=== PATIENT | male | born 1995 | race Caucasian/White ===

== ENCOUNTER → 2020-03-29 14:52 | Outpatient (BNVA) | payer OTHER, SELFPAY | PROVIDERS: PCP Internal Medicine; Referring Provider Internal Medicine; Visit Provider Surgery | DX: L05.01 Pilonidal cyst with abscess (principal) | CPT/HCPCS: 10080; 99202 ==

== ENCOUNTER → 2020-04-12 10:38 | Outpatient (BNVA) | payer OTHER, SELFPAY | PROVIDERS: PCP Internal Medicine; Visit Provider Surgery | DX: L05.01 Pilonidal cyst with abscess (principal) | CPT/HCPCS: 99212 ==

== ENCOUNTER 2021-10-11 00:36 | Emergency (ER) | payer OTHER, SELFPAY ==
--- NOTE | ~2021-10-11 | XR_ITS ---
EXAMINATION: XR CHEST CLINICAL INFORMATION: Shortness of breath COMPARISON: 10/12/2012 TECHNIQUE: Frontal view of the chest was obtained. FINDINGS: The lungs are clear with no focal consolidation. No evidence of pneumothorax, pulmonary edema, or pleural effusions. The cardiomediastinal silhouette is unremarkable. No acute osseous findings. XR/XR chest 1V IMPRESSION: No acute cardiopulmonary findings.
[2021-10-11 00:48] VITALS: BP 150/105; PULSE 84; RESP 16; TEMP 36.4; O2SAT 95; BMI 24.4
[2021-10-11 01:15] LABS: COVID-19 Test Negative (Negative); IDNOW Serial# 16C4AD1C; Influenza A Negative (Negative); Influenza B2 Negative (Negative)
[2021-10-11 01:22] VITALS: PULSE 94; RESP 16; O2SAT 95
[2021-10-11 02:00] VITALS: BP 145/90; PULSE 82; RESP 16; TEMP 36.6; O2SAT 95
[2021-10-11] MEDS: predniSONE 20 MG TABLET 40 MG PO (02:10)
[2021-10-11] MEDS: Albuterol/Iprat 2.5/0.5MG 3 ML AMPUL.NEB INHALE (02:18)
[2021-10-11] MEDS: Albuterol Sulfate (0.083%) 2.5 MG/3 ML VIAL.NEB 5 MG INHALE (02:18)
[2021-10-11 02:19] VITALS: PULSE 79; RESP 16; O2SAT 98
--- NOTE | 2021-10-11 03:29 | ED.ASTHMA ---
HPI - Asthma General Chief Complaint: Asthma Stated Complaint: asthma attack Time Seen by Provider: 10/11/21 01:56 Source: patient Mode of arrival: ambulatory Limitations: no limitations History of Present Illness HPI Narrative: 26-year-old male came in for evaluation of coughing and wheezing. Patient with known history of asthma, for the past 2 days been feeling wheezing and tightness in his chest with productive coughing, this morning patient notice 1 time streaks of blood in the mucus. Patient feels wheezing and tightness in the chest but no chest pain, no fever, no chills, no sick contact, no recent travel, no lower extremity swelling or tenderness. Patient was using his inhaler with no relief of his symptoms. Related Data Home Medications Medication Instructions Recorded Confirmed albuterol sulfate 90 mcg/actuation INHALATION 03/28/20 02/15/21 aerosol inhaler fluticasone 250 mcg-salmeterol 50 1 ea PO BID 11/08/20 02/15/21 mcg/dose blistr powdr for inhalation Previous Rx's Medication Instructions Recorded albuterol sulfate 90 mcg/actuation 1 inh INHALATION QID PRN #8.5 g 10/11/21 aerosol inhaler (ProAir HFA) prednisone 20 mg tablet 20 mg PO BID #10 tab 10/11/21 Allergies Allergy/AdvReac Type Severity Reaction Status Date / Time peanut [PEANUT] Allergy Severe ANAPHYLAXIS Verified 02/15/21 14:20 dog dander [DOGS] Allergy Unknown SNEEZING Verified 02/15/21 14:20 egg [EGG] Allergy Unknown UNSURE Verified 02/15/21 14:20 feathers Allergy Unknown SNEEZING Verified 02/15/21 14:20 Review of Systems Review of Systems: All other systems are reviewed and are negative Constitutional: Reports as per HPI and Reports no additional constitutional complaints Eyes: Reports as per HPI and Reports no additional eye complaints Reports system reviewed and no additional complaints, except as documented Cardiovascular: Reports as per HPI and Reports no additional cardiovascular complaints Respiratory: Reports as per HPI and Reports no additional respiratory complaints Gastrointestinal: Reports as per HPI and Reports no additional gastrointestinal complaints Genitourinary: Reports no additional female genitourinary complaints Musculoskeletal: Reports no additional musculoskeletal complaints Skin/Breast: Reports system reviewed and no additional complaints, except as docu Psychiatric: Reports no additional psychiatric complaints Endocrine: Reports no additional endocrine complaints Hematologic/Lymphatic: Reports no additional hematologic/lymphatic complaints Allergic/Immunologic: Reports no additional allergic/immunologic complaints Reports system reviewed and no additional complaints, except as documented and Reports Abnormal speech present [facility] Past Medical History Medical History (Updated 10/11/21 @ 03:33 by Pipo Davison MD) Asthma Pilonidal abscess Surgical History History of tonsillectomy History of wisdom tooth extraction Family History Family History Father No problems noted. Mother No problems noted. Social History Social History Housing: House Alcohol intake: never Patient Tobacco Use Status: Never used Tobacco e-Cigarette/Vaping Use: Never Used Second Hand Smoke Exposure: No Advance Directives: No service: No Current occupational status: unemployed Physical Exam Vital Signs: Vital Signs: Last Vital Signs Temp 97.9 F 10/11/21 02:00 Pulse 79 10/11/21 02:19 Resp 16 10/11/21 02:19 BP 145/90 H 10/11/21 02:00 Pulse Ox 95 10/11/21 02:00 BMI result Body Mass Index 24.4 Vital signs have been reviewed as appeared to be correct. Blood pressure normal. Heart rate normal. Respiration rate normal. Temperature normal. Oxygen saturation normal. Appearance: Alert. Oriented X3. No acute distress. Head: Normal external exam. Normocephalic. Atraumatic. No Pompa signs noted. No raccoon eyes noted Eyes: PERRLA. EOMI. Conjunctiva and sclera normal. Eyelids normal. ENT: TM's Normal. Pharynx normal. Uvula midline. Moist mucous membranes. No trismus noted. No drooling noted. No muffled voice noted. Neck: Normal inspection. Neck supple. FROM. No adenopathy. Thyroid Normal. No meningeal signs. No neck mass noted. CVS: Normal heart rate and rhythm. Heart sound normal. No murmurs noted. Pulses normal throughout. Respiratory: No respiratory distress. Painless inspiration. Breath sounds normal. Bilateral diffuse mild expiratory wheezing with prolonged expiration. No accessory muscle usage noted or decreased air movement noted. Abdomen: Soft and nontender. Bowel sounds normal in all 4 quadrants. No distention noted. No organomegaly noted. No visible injury noted. Back: No CVA tenderness. Full range of motion noted. Skin: Skin warm and dry. Normal skin color. Normal skin turgor. No rashes/lesions/lacerations noted. Extremities: No lower extremity edema. Extremities exhibit normal range of motion. Extremities nontender. Neuro: Oriented X 3. Cranial nerve exam: II-XII are grossly intact No motor deficit. No sensory deficit. Reflexes normal. Course Course Course Narrative: Assessment and plan. 26-year-old male history of asthma came in with asthma exacerbation, patient is negative for respiratory panel infection, chest x-ray is unremarkable. Patient was given bronchodilator and will start the patient on Z-Saman and prednisone. MDM - Asthma Lab Data Attestation: I reviewed the patient's lab results. Labs: Lab Results 10/11/21 10/11/21 Range/Units 00:52 00:52 COVID-19 ([facility]) Negative (Negative) COVID-19 Clin Com See Note Influenza Type A (TRA) Negative (Negative) Influenza Type B (TRA) Negative (Negative) Influenza A & B Note See Note Imaging Data Chest x-ray: Attestation: I personally reviewed and interpreted this imaging study as follows: Radiologist's impression: No acute cardiopulmonary findings. Discharge Plan Discharge Clinical Impression: Acute asthmatic bronchitis Patient Disposition: Home, Self-Care Instructions: Asthma (ED) Prescriptions: New prednisone 20 mg tablet 20 mg PO BID Qty: 10 0RF albuterol sulfate [ProAir HFA] 90 mcg/actuation HFA aerosol inhaler 1 inh inhalation QID PRN (Reason: shortness of breath or wheezing) Qty: 8.5 0RF No Action albuterol sulfate 90 mcg/actuation HFA aerosol inhaler inhalation 0RF fluticasone propion-salmeterol 250-50 mcg/dose blister with device 1 ea PO BID 0RF Referrals: Physician,Unknown J [Primary Care Provider] - Stand Alone Forms: Work/School Release
== END 2021-10-11 04:39 | disposition home or self-care (01) ==
PROVIDERS: Emergency Provider Emergency Medicine
DX: J20.9 Acute bronchitis, unspecified (principal); J45.909 Unspecified asthma, uncomplicated; Z20.822 Contact with and (suspected) exposure to COVID-19
CPT/HCPCS: 71045; 87502; 87635; 94640; 94644; 99284

== ENCOUNTER 2021-11-24 14:43 | Outpatient (REF) | payer OTHER, SELFPAY ==
[2021-11-24 15:21] LABS: MANUAL DIFF FLAG NO
[2021-11-24 15:22] LABS: Basophils Percent Auto 0.3 % (0-2); Eosinophils Absolute Auto 0.1 X10*3/uL (0.0-0.4); Eosinophils Percent Auto 1.5 % (0-4); Hematocrit 46.6 % (42.0-52.0); Hemoglobin 16.4 g/dl (14.0-18.0); Imm Gran Abs Auto 0.02 X10*3/uL (0.00-0.03); Imm Gran Pct Auto 0.3 % (0.0-0.4); Lymphocytes Absolute Auto 2.5 X10*3/uL (1.2-4.9); Lymphocytes Percent Auto 41.7 % (20-40); Mean Corpuscular HGB Conc 35.2 g/dl (31.0-36.0); Mean Corpuscular Hemoglobin 30.3 pg (27.0-33.0); Mean Platelet Volume 10.7 fL (9.4-12.4); Monocytes Absolute Auto 0.6 X10*3/uL (0.1-1.2); Neutrophils Absolute Auto 2.7 x10*3/uL (2.0-8.3); Neutrophils Percent Auto 46.2 % (45-73); Platelet Count 152 X10*3/uL (160-400); Red Blood Count 5.42 X10*6/uL (4.60-5.80); Red Cell Distribution Width 11.4 % (11.0-16.0); White Blood Count 5.9 X10*3/uL (4.8-10.8)
[2021-11-24 15:48] LABS: Appearance Urine CLEAR; Color Urine YELLOW; Glucose Urine UA NEG (NEG); Leukocyte Esterase Urine NEG (NEG); Nitrite Urine NEG (NEG); UACC Culture Trigger NO; Urine Blood NEG (NEG); Urine Ketones NEG (NEG); Urine Protein 1+ MG/DL (NEG-TRACE)
[2021-11-24 16:01] LABS: RBC Urine 0 /HPF (0); Squamous Epithelial Cell Urine TRACE /LPF; WBC Urine 0 /HPF (0-4)
[2021-11-26 07:01] LABS: HIV AB/AG Nonreactive (Nonreactive); HIV Num 1 0.17 S/CO (0.00-0.99)
== END 2021-11-24 14:44 | disposition home or self-care (01) ==
LOC: HO.HMGCLDS 14:43
PROVIDERS: Visit Provider Physician Assistant Medical
DX: Z11.4 Encounter for screening for human immunodeficiency virus [HIV] (principal); R11.10 Vomiting, unspecified; N39.0 Urinary tract infection, site not specified
CPT/HCPCS: 36415; 81001; 85025; 87389

== ENCOUNTER 2022-05-03 08:00 | Outpatient (RCR) | payer OTHER, SELFPAY | END 2022-06-03 10:45 | disposition home or self-care (01) | LOC: HO.PT 08:00 | PROVIDERS: Visit Provider Nurse Practitioner Family | DX: R42 Dizziness and giddiness (principal) | CPT/HCPCS: 97161 ==

== ENCOUNTER 2022-10-23 19:31 | Emergency (ER) | payer OTHER, SELFPAY ==
--- NOTE | ~2022-10-23 | XR_ITS ---
EXAMINATION: XR CHEST CLINICAL INFORMATION: Cough, wheezing COMPARISON: 10/11/2021 TECHNIQUE: 2 views of the chest were obtained. FINDINGS: The lungs are clear with no focal consolidation. No evidence of pneumothorax, pulmonary edema, or pleural effusions. The cardiomediastinal silhouette is unremarkable. No acute osseous findings. XR/XR chest 2V IMPRESSION: No acute cardiopulmonary findings.
--- NOTE | 2022-10-23 19:45 | ED_ITS ---
HPI - Asthma General Chief Complaint: Asthma Stated Complaint: asthma attack symptoms Time Seen by Provider: 10/23/22 21:42 Source: patient, RN notes reviewed and old records reviewed Mode of arrival: ambulatory Limitations: no limitations History of Present Illness HPI Narrative: 27-year-old male past medical history significant for asthma presents for evaluation of shortness of breath. Patient reports worsening wheezing/shortness of breath for the last 3 days Reports he has been using his inhalers and nebulizer with minimal improvement. Denies any fevers, cough. A he wonders if his symptoms may be related to the air quality due to the [place] complaint: asthma attack Related Data Home Medications Medication Instructions Recorded Confirmed albuterol sulfate 90 mcg/actuation inhalation 03/28/20 09/03/22 aerosol inhaler fluticasone 250 mcg-salmeterol 50 1 ea PO BID 11/08/20 09/03/22 mcg/dose blistr powdr for inhalation Previous Rx's Medication Instructions Recorded albuterol sulfate 90 mcg/actuation 1 inh inhalation QID PRN shortness 10/11/21 aerosol inhaler (ProAir HFA) of breath or wheezing #8.5 grams albuterol sulfate 2.5 mg/0.5 mL 5 mg inhalation Q6H PRN shortness 10/23/22 solution for nebulization of breath or wheezing #30 ea prednisone 20 mg tablet 40 mg PO DAILY #10 tabs 10/23/22 Allergies Allergy/AdvReac Type Severity Reaction Status Date / Time peanut [PEANUT] Allergy Severe ANAPHYLAXIS Verified 09/03/22 10:02 dog dander [DOGS] Allergy Unknown SNEEZING Verified 09/03/22 10:02 egg [EGG] Allergy Unknown UNSURE Verified 09/03/22 10:02 feathers Allergy Unknown SNEEZING Verified 09/03/22 10:02 Review of Systems Constitutional: Constitutional: Reports as per HPI, Denies chills, Denies fatigue, Denies fever(s) and Denies headache(s) ENT: Denies headache(s) Cardiovascular: Cardiovascular: Denies chest pain and Reports dyspnea Respiratory: Respiratory: Denies cough, Reports dyspnea and Reports wheezing Neurologic: Denies headache(s) and Denies focal weakness Endocrine: Endocrine: Denies fatigue Allergic/Immunologic: Allergic/Immunologic: Reports wheezing PMFSH Past Medical History Medical History (Updated 10/23/22 @ 22:49 by Rashid Foster) Acute otitis media Asthma Pilonidal abscess Vertigo Surgical History History of tonsillectomy History of wisdom tooth extraction Family History Family History Father No problems noted. Mother No problems noted. Social History Social History Housing: House Alcohol intake: never Patient Tobacco Use Status: Never used Tobacco e-Cigarette/Vaping Use: Never Used Second Hand Smoke Exposure: No Advance Directives: No Advance Directives Information Provided: Yes service: No Current occupational status: unemployed Cognitive needs: No Hearing needs: No Vision needs: No Physical Exam Vital Signs: Vital Signs: Last Vital Signs Temp 97.8 F 10/23/22 21:45 Pulse 88 10/23/22 22:30 Resp 18 10/23/22 22:30 BP 135/85 10/23/22 21:45 Pulse Ox 98 10/23/22 21:45 O2 Del Method Room Air 10/23/22 21:45 BMI result Body Mass Index 25.1 Const: General: healthy appearing, comfortable, no acute distress, alert and awake Nutritional Appearance: well nourished Orientation/consciousness: patient oriented x3 HEENT: Head: Yes normocephalic and Yes atraumatic Eyes: Eyelids: Yes eyelids normal Conjunctivae: conjunctivae normal Sclerae: sclerae normal Corneas: corneas normal Pupils: Equal, round and reactive pupils present EOM: EOMs intact bilaterally Neck: Neck: Yes full ROM Resp: Effort & Inspection: normal respiratory effort, able to speak in complete sentences and not labored Auscultation: wheezes Skin: General skin exam: no rashes or lesions noted and elasticity normal Neuro: General: patient oriented x3 Cranial nerves: Yes Equal, round and reactive pupils present and Yes Bilaterally intact EOM present Cognition (Neuro): normal cognition Course Course Course Narrative: RME - 27 yo male with history of asthma presents to the ER for evaluation of asthma symptoms for the last 2-3 days. Has been using the neb machine without improvement. +coughing +wheezing. no fever. symptoms worse since being outside a lot lately. SpO2 93-95% in triage, speaking in complete sentences but diffusely wheezy. Plan: CXR, neb, steroids Medications Administered Discontinued Medications Generic Name Dose Route Start Last Admin Trade Name Sebastienq PRN Reason Stop Dose Admin Albuterol Sulfate 2.5 mg/ 0 mg 10/23/22 22:18 10/23/22 22:27 Albuterol/Ipratropium 3 ml INHALE 10/23/22 22:19 1 each ONCE ONE Administration Prednisone 40 mg 10/23/22 22:11 10/23/22 22:15 Prednisone 20 Mg Tablet PO 10/23/22 22:12 40 mg ONCE ONE Administration Medical Decision Making Medical Decision Making [facility] Narrative: Patient appears to have symptoms consistent with a mild asthma exacerbation. Vital signs are stable. Symptoms possibly related to allergic triggers. Will discharge patient on prednisone, refill his albuterol for his nebulizer and he will follow-up with his PCP. Chest x-ray is clear Differential Diagnosis Asthma Bronchitis Allergies Upper respiratory infection Independent Interpretation I performed an independent interpretation of an: Plain X-Ray (No acute infiltrates) Discharge Plan Discharge Clinical Impression: Asthma with acute exacerbation Patient Disposition: Home, Self-Care Instructions: Asthma (ED) Additional Instructions: Your symptoms are consistent with an asthma exacerbation. Your chest x-ray is clear Take prednisone 40 mg daily for the next 5 days Use a rescue inhaler and nebulizers as prescribed You may benefit from an [id number]-kgxayiy allergy medication daily during the summer months, as it is likely your symptoms are attributed to allergic triggers Prescriptions: New prednisone 20 mg tablet 40 mg PO DAILY Qty: 10 0RF albuterol sulfate 2.5 mg/0.5 mL solution for nebulization 5 mg inhalation Q6H PRN (Reason: shortness of breath or wheezing) Qty: 30 0RF No Action albuterol sulfate [ProAir HFA] 90 mcg/actuation HFA aerosol inhaler 1 inh inhalation QID PRN (Reason: shortness of breath or wheezing) Qty: 8.5 0RF albuterol sulfate 90 mcg/actuation HFA aerosol inhaler inhalation fluticasone propion-salmeterol 250-50 mcg/dose blister with device 1 ea PO BID
[2022-10-23 19:46] VITALS: BP 146/68; PULSE 85; RESP 20; TEMP 37.1; O2SAT 94; BMI 25.1
[2022-10-23 21:45] VITALS: BP 135/85; PULSE 73; RESP 16; TEMP 36.6; O2SAT 98
[2022-10-23] MEDS: predniSONE 20 MG TABLET 40 MG PO (22:15)
[2022-10-23 22:30] VITALS: PULSE 88; RESP 18; O2SAT 96
[2022-10-23 23:01] VITALS: BP 147/86; PULSE 84; RESP 20; O2SAT 95
== END 2022-10-23 23:02 | disposition home or self-care (01) ==
PROVIDERS: Emergency Provider Emergency Medicine
DX: J45.901 Unspecified asthma with (acute) exacerbation (principal)
CPT/HCPCS: 71046; 94640; 99284

== ENCOUNTER 2022-11-21 11:00 | Outpatient (RCR) | payer OTHER, SELFPAY ==
--- NOTE | 2022-12-16 09:36 | MHC.PT.DC ---
[facility] [place] [facility] [place] [facility] [place] Office [address] Nellie Zamora [address] [phone] F: [phone] F: [phone] F: [phone] F: [phone] Physical Therapy Discharge Report Diagnosis: VERTIGO (KP) Date of Surgery: Date of Evaluation: 11/11/22 Date of Discharge: Treatments to Date: 3 Cancellations to Date: 0 No Shows to Date: 0 Discharge Status: Achieved Goals Improved Function Independent with HEP Discharge Summary: [place] arrived stating he is feeling better. He has noticed improvements in dizziness when he is hiking. He has noticed improvements with with VOR activities. He however continues to report of having dizziness with rolling in the bed and walking with horizontal head turns. I started the session with VOR exercises. Balance challenged with walking head turns and ball passes. Dizziness and nausea reported with both but no LOB seen. [place] has made significant improvements and is independent with HEP. He will be practicing HEP until complete resolution of symptoms. He was advised to return to PT incase of lack of improvement or worsening of symptoms. No adverse response noted to any exercise. Electronically signed by: OMER RAMON PT DPT Please sign and return to therapist. Thank you for your referral.
== END 2022-12-16 09:36 | disposition home or self-care (01) ==
LOC: HO.PT 11:00
PROVIDERS: PCP Internal Medicine; Visit Provider Internal Medicine
DX: R42 Dizziness and giddiness (principal)
CPT/HCPCS: 95992; 97112; 97161

== ENCOUNTER 2022-12-03 15:55 | Outpatient (AMB) | payer OTHER, SELFPAY ==
[2022-12-03 16:00] VITALS: BP 127/67; PULSE 67; BMI 25.6
--- NOTE | 2022-12-03 16:00 | MHC.OFFVIS ---
Intake Vital Signs 12/03/22 16:00 Height 6 ft Weight 189 lb BMI 25.6 BP 127/67 Blood Pressure Location Rt brachial Position Sitting Pulse 67 Intake Visit Reasons: Cyst/ Lt nipple Intake Note: Patient referred for cyst on Lt nipple. Has been present for 13 yrs. Patient reports oozing when pressed. 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 Each of increasing size, become more symptomatic. He would like to have them excised. He has no other issues or complaints. Chart was reviewed and patient evaluated [facility] Medical History Acute otitis media Asthma Pilonidal abscess Vertigo Surgical History History of tonsillectomy History of wisdom tooth extraction Family History Father No problems noted. Mother No problems noted. Social History (Updated 12/03/22 @ 16:02 by MINA Domingo) Housing: House Alcohol intake: current Alcohol intake frequency: holidays/special occasions only Patient Tobacco Use Status: Never used Tobacco e-Cigarette/Vaping Use: Never Used Second Hand Smoke Exposure: No service: No Current occupational status: unemployed Cognitive needs: No Hearing needs: No Vision needs: No Physical Exam Vital Signs: Last Vital Signs Pulse 67 12/03/22 16:00 BP 127/67 12/03/22 16:00 BMI result Body Mass Index 25.6 Chest Other: Small sebaceous cyst with punctum along the areola at the 2 o'clock position of left chest. This measures approximately 2 x 1 cm. GI Other: Small sebaceous cyst in left lower quadrant anterior abdominal wall measuring approximately 2 x 1 cm. Assessment & Plan Assessment & Plan (1) Sebaceous cyst: Code(s): L72.3 - Sebaceous cyst Plan Current plan is to arrange for excision of these on a day which is convenient for the patient. Arrangements will be made for this in the office procedure room.. Coding Level of Care Code New Pt Level 3 (26742) Diagnoses Sebaceous cyst L72.3
== END 2022-12-03 16:21 | disposition home or self-care (01) ==
PROVIDERS: Referring Provider Internal Medicine; Visit Provider Surgery
DX: L72.3 Sebaceous cyst (principal)
CPT/HCPCS: 99203

== ENCOUNTER → 2022-12-03 15:55 | Outpatient (BNVA) | payer OTHER, SELFPAY | PROVIDERS: Referring Provider Internal Medicine; Visit Provider Surgery | DX: N60.82 Other benign mammary dysplasias of left breast (principal) | CPT/HCPCS: 99202 ==

== ENCOUNTER 2023-02-25 08:41 | Outpatient (REF) | payer OTHER, SELFPAY | END 2023-02-25 08:42 | disposition home or self-care (01) | LOC: HO.LNP 08:41 | PROVIDERS: Visit Provider Surgery | DX: L72.3 Sebaceous cyst (principal) | CPT/HCPCS: 11401; 88304 ==

== ENCOUNTER 2023-02-25 08:41 | Outpatient (AMB) | payer OTHER, SELFPAY ==
--- NOTE | 2023-02-25 08:49 | A.OFFVIS_ITS ---
Intake Vital Signs 02/25/23 08:50 Height 6 ft Weight 194 lb BMI 26.3 BP 111/56 L Blood Pressure Location Rt brachial Position Sitting Pulse 76 Intake Visit Reasons: Exc 2 cysts chest wall and abdominal wall Intake Note: Patient here for excision on Lt chest near areola and LLQ for cysts. 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 Accompanied by: Self / Same As Patient Allergies peanut [PEANUT] Allergy (Severe, Verified 02/25/23 08:51) ANAPHYLAXIS dog dander [DOGS] Allergy (Unknown, Verified 02/25/23 08:51) SNEEZING egg [EGG] Allergy (Unknown, Verified 02/25/23 08:51) UNSURE feathers Allergy (Unknown, Verified 02/25/23 08:51) SNEEZING Medication List - Last Reconciled 02/25/23 by Kevin Bruner MD albuterol sulfate 90 mcg/actuation (ProAir HFA) 1 inh inhalation QID PRN albuterol sulfate 5 mg inhalation Q6H PRN fluticasone propion-salmeterol 250-50 mcg/dose 1 ea PO BID HPI HPI Comments History of Present Illness Details Patient presents for excision of 2 sebaceous cysts involving his left periareolar area and left lower abdominal wall. Patient was seen by me several months ago for these. Risks, benefits, alternatives of excision of these 2 cysts were reviewed with the patient and included but not limited to bleeding, infection, recurrence, numbness, pain, scarring the patient wishes to proceed. All questions were answered. [facility] Medical History Acute otitis media Vertigo Pilonidal abscess Asthma Surgical History History of wisdom tooth extraction History of tonsillectomy Family History Father No problems noted. Mother No problems noted. Social History Housing: House Alcohol intake: current Alcohol intake frequency: holidays/special occasions only Patient Tobacco Use Status: Never used Tobacco e-Cigarette/Vaping Use: Never Used Second Hand Smoke Exposure: No service: No Current occupational status: unemployed Cognitive needs: No Hearing needs: No Vision needs: No Physical Exam Vital Signs: Last Vital Signs Pulse 76 02/25/23 08:50 BP 111/56 L 02/25/23 08:50 BMI result Body Mass Index 26.3 Office Procedures Excision Details: After appropriate positioning, patient underwent 1% lidocaine and Betadine prep of the left periareolar cyst at the 2 o'clock position and of the left lower abdominal wall. Each cyst measured approximately 1 x 1 cm. Each area was approach with a bi- elliptical incision with uneventful excision. Each specimen was separately sent to pathology. Each wound was irrigated, secured hemostasis, and closed using running subcuticular 3-0 Vicryl sutures followed by Steri-Strips and sterile dressing. Patient tolerated procedure well. 55745-cvveb/arms/legs 0.6-1cm Procedure code (CPT) selection complete Office Meds lidocaine 1 %-epinephrine 1:100,000 injection solution Performing Provider: Kevin Bruner MD Performing Location: [facility] Surgeons Administered by: Kevin Bruner MD on 02/25/23 09:19 Dose Route Admin Location Dispensed Lot Number Expiration Date [facility] Food Mixer Assembler 10 mL Infiltration 10 mL Assessment & Plan Assessment & Plan (1) Sebaceous cyst: Code(s): L72.3 - Sebaceous cyst Plan: Patient has been given local instructions, and will follow-up as directed or p.r.n.. This include avoiding strenuous activities for next week, may shower in 2 days, ice pack intermittently today and tomorrow, and Advil or Tylenol p.r.n. pain. Patient will be given a note for light duty at work for the next week. Orders: Orders AMB Excision Today L72.3 - Sebaceous cyst Coding Level of Care Code Est Pt Level 4 (09694) Diagnoses Sebaceous cyst L72.3 CPT Codes Trunk/Arms/Legs - CPT: 03443-falir/arms/legs 0.6-1cm ([id number])
[2023-02-25 08:50] VITALS: BP 111/56; PULSE 76; BMI 26.3
== END 2023-02-25 09:23 | disposition home or self-care (01) ==
PROVIDERS: Visit Provider Surgery
DX: L72.3 Sebaceous cyst (principal)
CPT/HCPCS: 11401

== ENCOUNTER 2023-03-04 10:29 | Outpatient (AMB) | payer OTHER, SELFPAY ==
[2023-03-04 10:41] VITALS: BP 130/66; PULSE 69; BMI 26.0
--- NOTE | 2023-03-04 10:41 | MHC.OFFVIS ---
Intake Vital Signs 03/04/23 10:41 Height 6 ft Weight 192 lb BMI 26.0 BP 130/66 Blood Pressure Location Rt brachial Position Sitting Pulse 69 Intake Visit Reasons: S/p Exc 2 cysts chest wall and abdominal wall Intake Note: Patient here s/p exc on chest and abd wall. Patient reports incisions healing well. C/o mild itch. 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 He has no wound issues or complaints. Pathology is still pending. If there is an issue with the pathology, we will contact him. [facility] Medical History Acute otitis media Vertigo Pilonidal abscess Asthma Surgical History History of wisdom tooth extraction History of tonsillectomy Family History Father No problems noted. Mother No problems noted. Social History Housing: House Alcohol intake: current Alcohol intake frequency: holidays/special occasions only Patient Tobacco Use Status: Never used Tobacco e-Cigarette/Vaping Use: Never Used Second Hand Smoke Exposure: No service: No Current occupational status: unemployed Cognitive needs: No Hearing needs: No Vision needs: No Physical Exam Vital Signs: Last Vital Signs Pulse 69 03/04/23 10:41 BP 130/66 03/04/23 10:41 BMI result Body Mass Index 26.0 Chest Other: Chest and abdominal wound incisions are well healed. Assessment & Plan Assessment & Plan (1) Sebaceous cyst: Code(s): L72.3 - Sebaceous cyst Plan Patient has been given local wound instructions, and will follow-up p.r.n. Coding Level of Care Code Global (08262) Diagnoses Sebaceous cyst L72.3
== END 2023-03-04 10:47 | disposition home or self-care (01) ==
PROVIDERS: Visit Provider Surgery
DX: L72.3 Sebaceous cyst (principal)
CPT/HCPCS: 99024

== ENCOUNTER → 2023-03-04 10:29 | Outpatient (BNVA) | payer OTHER, SELFPAY | PROVIDERS: Visit Provider Surgery | DX: L72.3 Sebaceous cyst (principal) ==

== ENCOUNTER 2023-10-03 10:24 | Emergency (ER) | payer OTHER, SELFPAY ==
--- NOTE | ~2023-10-03 | XR_ITS ---
EXAMINATION: XR CHEST CLINICAL INFORMATION: Shortness of breath. COMPARISON: 10/23/2022 TECHNIQUE: 2 views of the chest were obtained. FINDINGS: The lungs are well expanded. No focal consolidation. No pleural effusion. Cardiac silhouette is unchanged. XR/XR chest 2V IMPRESSION: No acute abnormality.
[2023-10-03 10:33] VITALS: BP 118/79; PULSE 109; RESP 24; TEMP 36.4; O2SAT 95; BMI 22.0
[2023-10-03 13:21] LABS: Influenza A PCR NEGATIVE (Negative); Influenza B PCR NEGATIVE (Negative); Resp Syncy Virus RNA Qual PCR NEGATIVE (Negative); SARS COV2 PCR INHOUSE NEGATIVE (Negative)
[2023-10-03] MEDS: predniSONE 20 MG TABLET 60 MG PO (13:38)
[2023-10-03] MEDS: Albuterol Sulfate 2.5 MG, Albuterol/Iprat 2.5/0.5MG 3 ML 3 ML INHALE (13:45)
[2023-10-03 13:46] VITALS: PULSE 94; RESP 16; O2SAT 97
--- NOTE | 2023-10-03 14:07 | ED.ASTHMA ---
HPI - Asthma General Chief Complaint: Asthma Stated Complaint: asthma attack Time Seen by Provider: 10/03/23 13:23 Source: patient Mode of arrival: ambulatory Limitations: no limitations History of Present Illness HPI Narrative: Patient is a 28-year-old male with past medical history of asthma who presents emergency department expressing concern for asthma exacerbation. Symptom onset was today while at work. 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 He attempted for nebulizer treatments prior to his arrival with only minimal relief. He denies any recent URI symptoms or known sick contacts. Denies fevers, chills, chest pain. Of note, he does admit that he has not been taking his Flovent inhaler for the past few months due to insurance coverage. Related Data Home Medications ?Medication ?Instructions ?Recorded ?Confirmed fluticasone 250 mcg-salmeterol 50 1 ea PO BID 11/08/20 09/03/22 mcg/dose blistr powdr for inhalation Previous Rx's ?Medication ?Instructions ?Recorded albuterol sulfate 90 mcg/actuation 1 inh inhalation QID PRN shortness 10/11/21 aerosol inhaler (ProAir HFA) of breath or wheezing #8.5 grams albuterol sulfate 2.5 mg/0.5 mL 5 mg inhalation Q6H PRN shortness 10/23/22 solution for nebulization of breath or wheezing #30 ea albuterol sulfate 2.5 mg/3 mL 2.5 mg (3 mL) inhalation QID PRN 10/03/23 (0.083 %) solution for nebulization shortness of breath or wheezing #90 mL albuterol sulfate 90 mcg/actuation 2 puff inhalation Q4-6H PRN 10/03/23 aerosol inhaler (Ventolin HFA) shortness of breath or wheezing #8.5 grams fluticasone 250 mcg-salmeterol 50 1 inh inhalation BID #60 ea 10/03/23 mcg/dose blistr powdr for inhalation prednisone 20 mg tablet 40 mg (2 x 20 mg) PO DAILY 4 days 10/03/23 #8 tabs Allergies Allergy/AdvReac Type Severity Reaction Status Date / Time peanut [PEANUT] Allergy Severe ANAPHYLAXIS Verified 10/03/23 10:35 dog dander [DOGS] Allergy Unknown SNEEZING Verified 10/03/23 10:35 egg [EGG] Allergy Unknown UNSURE Verified 10/03/23 10:35 feathers Allergy Unknown SNEEZING Verified 10/03/23 10:35 Review of Systems Review of Systems: Yes all other systems are reviewed and are negative [facility] Past Medical History Attestation statement: The following information was validated with the patient. Source: old records reviewed Medical History Acute otitis media Vertigo Pilonidal abscess Asthma Surgical History History of wisdom tooth extraction History of tonsillectomy Family History Family History Father No problems noted. Mother No problems noted. Social History Social History Housing: House Alcohol intake: current Alcohol intake frequency: holidays/special occasions only Patient Tobacco Use Status: Never used Tobacco e-Cigarette/Vaping Use: Never Used Second Hand Smoke Exposure: No Advance Directives: No Advance Directives Information Provided: Yes service: No Current occupational status: unemployed Cognitive needs: No Hearing needs: No Vision needs: No Physical Exam Vital Signs: Vital Signs: Last Vital Signs Temp 97.6 F 10/03/23 10:33 Pulse 100 10/03/23 14:19 Resp 20 10/03/23 14:19 BP 118/79 10/03/23 10:33 Pulse Ox 96 10/03/23 14:19 O2 Del Method Room Air 10/03/23 10:33 BMI result Body Mass Index 22.0 Appearance: Alert.?Oriented to person, place and time. No acute distress.?Normal affect. Eyes: Pupils equal, round and reactive to light.? ENT: Pharynx normal.?? Neck: Normal inspection.? Neck supple.?? CVS: Heart sounds normal. Normal heart rate and rhythm.? Pulses normal.?? Respiratory: No respiratory distress.? Lung sounds With inspiratory and expiratory wheezing bilaterally. No stridor. No tripoding. No retractions. Abdomen: Soft and non-tender. Normoactive bowel sounds. ? Skin: Skin warm and dry.? Normal skin color.? Normal skin turgor.?? Extremities: No lower extremity edema.? No calf ttp? Neuro: Moves all extremities spontaneously. Sensation intact bilaterally. Ambulates with normal steady gait. Medications Administered Discontinued Medications Generic Name Dose Route Start Last Admin Trade Name Rebecca PRN Reason Stop Dose Admin Albuterol Sulfate 2.5 mg/ 0 mg 10/03/23 13:42 10/03/23 13:45 Albuterol/Ipratropium 3 ml INHALE 10/03/23 13:43 1 dose ONCE ONE Administration Prednisone 60 mg 10/03/23 13:31 10/03/23 13:38 Prednisone 20 Mg Tablet PO 10/03/23 13:32 60 mg ONCE ONE Administration Medical Decision Making Medical Decision Making MDM Narrative: Patient is a 28-year-old male who presents emergency department for evaluation of shortness of breath and personal concern for asthma exacerbation. Of note he has not been taking his daily maintenance inhalers due to insurance coverage issues. He acknowledges provocative environmental triggers for his asthma at work. While in the emergency department he received a dose of oral prednisone, albuterol 2.5 mg nebulized solution with report of improvement in his breathing when compared to his arrival. On re-evaluation he does continue to have expiratory wheezing but he is moving air more freely. Ambulatory O2 trial without hypoxia or expressed dyspnea. He overall appears well. He is nontoxic, afebrile, without tachypnea or hypoxia. At this time feel he is stable for discharge home. He now has new insurance, I have sent a prescription for his Flovent inhaler to his pharmacy in addition to albuterol MDI, nebulizer solution, and a course of prednisone. We discussed strict return precautions. Worrisome signs and symptoms that would warrant re-evaluation in the emergency department. All questions were answered. Stable for discharge. Differential Diagnosis Differential Diagnoses: The differential diagnosis associated with the presentation includes ( Asthma exacerbation, viral syndrome, pneumonia) Lab Data MDM Lab Attestation statement: I reviewed the patient's lab results. viral panel negative Labs: Lab Results 10/03/23 Range/Units 12:38 Influenza Type A (PCR) NEGATIVE (Negative) Influenza Type B (PCR) NEGATIVE (Negative) RSV RNA Qual (PCR) NEGATIVE (Negative) SARS-CoV-2 RNA (RT-PCR) NEGATIVE (Negative) Independent Interpretation I performed an independent interpretation of an: Plain X-Ray ( no pneumonia or pneumothorax) Radiology Impression Discussion of test interpretation with radiology: I have reviewed the radiologist's reading. Radiologist Impression: XR/XR chest 2V IMPRESSION: No acute abnormality. External Record Review External record reviewed: Outpatient record Prescription Management I considered prescription management with: Other ( see narrative above) Discharge Plan Discharge Clinical Impression: Asthma with acute exacerbation Patient Disposition: Home, Self-Care Instructions: Asthma (ED) Additional Instructions: take medications as prescribed. Follow-up with PCP/industrial/organizational psychologist. Return back to emergency department any new or worsening symptoms or concerns. Prescriptions: New prednisone 20 mg tablet 40 mg PO DAILY 4 Days Qty: 8 0RF albuterol sulfate 2.5 mg /3 mL (0.083 %) solution for nebulization 2.5 mg inhalation QID PRN (Reason: shortness of breath or wheezing) Qty: 90 0RF albuterol sulfate [Ventolin HFA] 90 mcg/actuation HFA aerosol inhaler 2 puff inhalation Q4-6H PRN (Reason: shortness of breath or wheezing) Qty: 8.5 0RF fluticasone propion-salmeterol 250-50 mcg/dose blister with device 1 inh inhalation BID Qty: 60 0RF No Action albuterol sulfate [ProAir HFA] 90 mcg/actuation HFA aerosol inhaler 1 inh inhalation QID PRN (Reason: shortness of breath or wheezing) Qty: 8.5 0RF albuterol sulfate 2.5 mg/0.5 mL solution for nebulization 5 mg inhalation Q6H PRN (Reason: shortness of breath or wheezing) Qty: 30 0RF fluticasone propion-salmeterol 250-50 mcg/dose blister with device 1 ea PO BID Referrals: Physician,Unknown J [Primary Care Provider] - Print Language: Hebrew
[2023-10-03 14:19] VITALS: PULSE 100; RESP 20; O2SAT 96
[2023-10-03 14:25] VITALS: BP 118/79; PULSE 100; RESP 20; TEMP 36.4; O2SAT 96
== END 2023-10-03 14:28 | disposition home or self-care (01) ==
PROVIDERS: Physician Assistant Medical; Emergency Provider Emergency Medicine Emergency Medical Services
DX: J45.901 Unspecified asthma with (acute) exacerbation (principal); Z03.818 Encounter for observation for suspected exposure to other biological agents ruled out
CPT/HCPCS: 0241U; 71046; 94640; 99284

== ENCOUNTER 2024-11-09 11:30 | Outpatient (AMB) | payer BC, SELFPAY ==
[2024-11-09 11:32] VITALS: BP 110/70; PULSE 78; TEMP 36.3; O2SAT 95; BMI 23.5
--- NOTE | 2024-11-09 11:32 | MHC.PC.OV ---
Vital Signs 11/09/24 11:32 Height 6 ft Weight 173 lb 8 oz BMI 23.5 BP 110/70 Blood Pressure Location Lt brachial Position Sitting Pulse 78 Pulse Source Pulse Oximeter Temp 97.3 F Temp Source Temporal Artery Scan Pulse Oximetry (%) 95 Oxygen Delivery Method Room Air Intake Visit Reasons: DIMITRIS from [place]/[facility] Allergies peanut (PEANUT) Allergy (Severe, Verified 11/09/24 11:44) ANAPHYLAXIS dog dander (DOGS) Allergy (Unknown, Verified 11/09/24 11:44) SNEEZING egg (EGG) Allergy (Unknown, Verified 11/09/24 11:44) UNSURE feathers Allergy (Unknown, Verified 11/09/24 11:44) SNEEZING Medication List - Last Reconciled 11/09/24 by RAJWINDER Chambers albuterol sulfate 90 mcg/actuation (ProAir HFA) 1 inh inhalation QID PRN albuterol sulfate 2.5 mg (3 mL) inhalation QID PRN albuterol sulfate 5 mg inhalation Q6H PRN albuterol sulfate 90 mcg/actuation (Ventolin HFA) 2 puffs inhalation Q4-6H PRN fluticasone propion-salmeterol 250-50 mcg/dose 1 inh inhalation BID fluticasone propion-salmeterol 250-50 mcg/dose 1 ea PO BID Tobacco use date assessed: 11/09/24 Dental Screening Dental Screen Date: 11/09/24 Did you have a dental visit in the last 12 months?: Yes Did you have a dental problem in the last 6 months where you did not have access to dental care?: No Was dental information given to patient?: Patient has dentist HPI DIMITRIS from [place]/[facility] HPI Details The patient is a 29-year-old male presenting for transition of care from Dr. Leos and management of asthma and allergies. The patient has a significant history of asthma, which has been managed with inhalers such as ProAir and Ventolin. He reports experiencing shortness of breath intermittently, particularly in environments with poor air quality, and has had episodes requiring emergency room visits. The patient has used prednisone in the past for exacerbations, although he prefers to avoid it due to side effects. The patient also reports symptoms consistent with allergic rhinitis, including congestion and potential new allergies. He has not followed up with an door to door sales representative in recent years and is seeking a referral for further evaluation. Additionally, the patient experiences vertigo, which occurs when he changes positions, such as getting up from bed. These episodes last about 5-10 seconds and have been suggested to be related to fluid buildup due to allergies. He has been advised to increase vitamin D intake and engage in exercises to manage the vertigo. [facility] Medical History Acute otitis media Vertigo Pilonidal abscess Asthma Surgical History History of wisdom tooth extraction History of tonsillectomy Family History Father No problems noted. Mother No problems noted. Social History Household Members: None Housing: House Alcohol intake: current Alcohol intake frequency: holidays/special occasions only Patient Tobacco Use Status: Never used Tobacco e-Cigarette/Vaping Use: Never Used Second Hand Smoke Exposure: No Substance Use Type: Marijuana service: No Current occupational status: unemployed Cognitive needs: No Hearing needs: No Vision needs: No Questionnaire PHQ-9 Over the last 2 weeks, how often have you been bothered by any of the following problems? 1. Little interest or pleasure in doing things: not at all 2. Feeling down, depressed, or hopeless: not at all 3. Trouble falling or staying asleep, or sleeping too much: not at all 4. Feeling tired or having little energy: not at all 5. Poor appetite or overeating: not at all 6. Feeling bad about yourself - or that you are a failure or have let yourself or your family down: not at all 7. Trouble concentrating on things, such as reading the newspaper or watching television: not at all 8. Moving or speaking so slowly that other people could have noticed. Or the opposite - being so fidgety or restless that you have been moving around a lot more than usual: not at all 9. Thoughts that you would be better off or of hurting yourself in some way: not at all Total score: 0 Depression Screening Interpretation: Negative Depression Screening Done: Yes 71023 - PHQ-9 Billing: Yes Source: Developed by Drs. Gab Edmonds, Josias Edge and colleagues, with an educational james from [employer]. Thrive Questionnaire Date Thrive assessed: 11/09/24 I am a: Patient What is your living situation today?: I have a steady place to live Within the past 12 months, did the food you bought not last and you didn't have the money to get more?: Sometimes True Within the past 12 months, did you worry whether your food would run out before you got money to buy more?: Sometimes True Do you have trouble paying for medicines?: No Do you have trouble getting transportation to medical appointments?: No Do you have trouble paying your heating and electricity bill?: No Do you have trouble taking care of your child, family member or friend?: No Do you have trouble with day-to-day activities such as bathing, preparing meals, shopping, managing finances, etc.?: No Are you currently unemployed and looking for a job?: No Are you interested in more education?: No Please select the resources that you would like help with: Food Currently or been in a relationship where the following occur: No concerns reported THRIVE Score: 2 AUDIT C Alcohol Use Questionnaire (AUDIT-C) 1. How often do you have a drink containing alcohol?: Never 3. How often do you have six or more drinks on one occasion?: Never Total Score: 0 SHON-7 AMB Questionnaire SHON-7 Date SHON - 7 assessed: 11/09/24 Feeling nervous, anxious, or on edge: 0 = Not at all Not being able to stop or control worryin = Not at all Worrying too much about different things: 0 = Not at all Trouble relaxin = Not at all Being so restless that it is hard to sit still: 0 = Not at all Becoming easily annoyed or irritable: 0 = Not at all Feeling afraid as if something awful might happen: 0 = Not at all Total SHON-7 score (0-4 normal; 5-9 mild; 10-14 moderate; 15-21 severe): 0 Source: Developed by Karol Espinoza Kurt Kroenke and colleagues, with an educational james from [employer]. SHON-7 Assessment Billing SHON-7 Assessment Tool: SHON-7 Assessment 02783 Review of Systems Const Denies headache(s) Eyes Denies loss of vision ENT Reports vertigo (Intermittently last at like 10 seconds with head tilt), Denies dizziness, Denies headache(s), Reports nasal congestion (on and off ), Reports tinnitus (Intermittently) and Denies sore throat Card Denies chest pain, Denies leg edema, Denies lightheadedness and Reports dyspnea (On and off attributed to asthma symptoms) Resp Reports cough (on and off), Denies hemoptysis, Reports excessive phlegm production (yellowish phlegm for about a month), Reports dyspnea (On and off attributed to asthma symptoms) and Reports wheezing (on and off) GI Denies abdominal pain, Denies melena, Denies constipation, Denies diarrhea and Denies vomiting Denies dysuria, Denies urinary frequency and Denies urinary urgency Musc Denies arthralgias, Denies joint swelling, Denies numbness and Denies tingling Neuro Denies Abnormal speech present, Denies behavioral changes, Reports vertigo (Intermittently last at like 10 seconds with head tilt), Denies dizziness, Denies headache(s), Denies loss of vision, Denies memory loss, Denies numbness and Denies tingling Psych Denies anxiety, Denies behavioral changes, Denies depression, Denies memory loss and Denies panic attacks David/Lymph Denies easy bleeding and Denies easy bruising Aller/Immun Reports wheezing (on and off) Physical exam (Primary Care) Vital Signs: Last Vital Signs Temp 97.3 F 11/09/24 11:32 Pulse 78 11/09/24 11:32 BP 110/70 11/09/24 11:32 Pulse Ox 95 11/09/24 11:32 Oxygen Delivery Method Room Air 11/09/24 11:32 BMI result Body Mass Index 23.5 Tobacco/Smoking Status: Tobacco use Status Tobacco use date assessed 11/09/24 11/09/24 11:36 Patient Tobacco Use Status Never used Tobacco 11/09/24 11:36 e-Cigarette/Vaping Use Never Used 11/09/24 11:36 PHQ-9: PHQ-9 Score PHQ-9: Total score 0 11/10/24 07:58 Depression Screening Interpretation: Negative Thrive Assessment: Date of Thrive Assessment Date Thrive assessed 11/09/24 11/09/24 11:36 Currently or been in a relationship where the following occur: No concerns reported Const General: healthy appearing, no acute distress, alert and awake Nutritional Appearance: well nourished Orientation/consciousness: oriented to person, oriented to place and oriented to time HENMT Ears: TM's normal bilaterally General nose exam: Abnormal mucous membranes and turbinates present boggy bilateral and erythematous and Nasal discharge present purulent on the right Throat: Yes posterior oropharynx normal and Yes postnasal drainage Eyes Conjunctivae: conjunctivae normal Sclerae: sclerae normal Pupils: Equal, round and reactive pupils present Neck Neck: Yes no lymphadenopathy and Yes no JVD Thyroid: Thyroid normal Carotids: no bruits Resp Effort & Inspection: normal respiratory effort and not tachypneic Auscultation: no crackles, no rales, no rhonchi and wheezes expiratory wheezes, lower bilaterally, upper bilaterally and posterior Cardio Rate: regular rate Rhythm: regular rhythm Heart sounds: no murmurs and normal S1 and S2 GI Palpation (GI): Soft to palpation, nontender, no hepatomegaly and no splenomegaly Auscultation: normal bowel sounds Skin General skin exam: no rashes or lesions noted and dry skin Neuro General: oriented to person, oriented to place and oriented to time Cranial nerves: Yes Equal, round and reactive pupils present Speech: No Abnormal speech present Gait exam (Neuro): Normal gait present Motor exam (neuro): no tremor noted Extrem Right upper extremity: full ROM Left upper extremity: full ROM Right lower extremity: full ROM; no edema Left lower extremity: full ROM; no edema Psych Mental Status: mental status grossly normal Speech and movement: Normal speech and movement present Affect: normal affect Attitude: cooperative Thought process: Normal thought process present Coding Level of Care Code Est Pt Level 4 (73164) Diagnoses Moderate persistent asthma with status asthmaticus J45.42 Asthma complication type: with status asthmaticus Asthma persistence: persistent Asthma severity: moderate Benign paroxysmal positional vertigo due to bilateral vestibular disorder H81.13 Laterality: bilateral Multiple food allergies Z91.018 Marijuana use F12.90 Rhinosinusitis J32.9 Additional Codes SHON-7 Assessment Billing - SHON-7 Assessment Tool: SHON-7 Assessment 43611 ([id number]) PHQ-9 - 74111 - PHQ-9 Billing: Yes ([id number]) Time Spent (min) 42 Assessment & Plan Assessment & Plan (1) Asthma: Code(s): J45.909 - Unspecified asthma, uncomplicated Category: Medical Qualifiers: Asthma complication type: with status asthmaticus Asthma persistence: persistent Asthma severity: moderate Qualified Code(s): J45.42 - Moderate persistent asthma with status asthmaticus Plan: Patient reports moderate persistent asthma. Reports that he lost his ophthalmic surgeon and would like to be referred to another one. He is currently on fluticasone propion-Salmeterol 250-50 mcg dose 1inh b.i.d., albuterol sulfate 90 mcg/actuation 1 inhalation q.i.d. p.r.n.. Patient also used neb treatments q.i.d. p.r.n. expiratory wheezes throughout. Patient is smoking marijuana about 2 times a day. Smoking cessation encouraged. pulmonology referral placed (2) BPPV (benign paroxysmal positional vertigo): Code(s): H81.10 - Benign paroxysmal vertigo, unspecified ear Category: Medical Qualifiers: Laterality: bilateral Qualified Code(s): H81.13 - Benign paroxysmal vertigo, bilateral Plan: Patient reports vertigo with forward head tilt, lasting 5-10 seconds. Started about 2 weeks ago. Vestibular therapy ordered (3) Multiple food allergies: Code(s): Z91.018 - Allergy to other foods Category: Medical Plan: Patient has multiple food allergies. Anaphylaxis shock with peanut allergies. Reports that he was evaluated when he was a child, and would like to see if he developed any new door to door sales representative since. He is requesting a referral to an door to door sales representative. Order placed (4) Marijuana use: Code(s): F12.90 - Cannabis use, unspecified, uncomplicated Category: Social Hx Plan: Reports smoking marijuana about 2 times a day. He is seeing some difference in his breathing after smoking. Per patient, it is slightly more labored. Smoking cessation encouraged (5) Rhinosinusitis: Code(s): J32.9 - Chronic sinusitis, unspecified Category: Medical Plan: Patient has boggy and erythematous turbinates bilateral. Purulent drainage in right nostril. Intermittent productive cough yellowish secretion. Augmentin 875-125 mg b.i.d. x7 days ordered Plan Patient to return in 8 weeks for annual physical. Orders: Orders Comprehensive [place]. Panel Fast 11/09/24 Z00. - Encounter for general adult medical examination without abnormal findings CK, Total+Isoenzymes, Serum 11/09/24 Z. - Encounter for general adult medical examination without abnormal findings Vitamin D 25-OH Total 11/09/24 Z. - Encounter for general adult medical examination without abnormal findings Lipid Panel 11/09/24 Z. - Encounter for general adult medical examination without abnormal findings TSH reflex Free T4 11/09/24 Z. - Encounter for general adult medical examination without abnormal findings UA CC w/rflx Micro + Cult 11/09/24 Z. - Encounter for general adult medical examination without abnormal findings PT Evaluation and Treatment Today H81.13 - Benign paroxysmal vertigo, bilateral Referrals Allergy & Immunology Referral Z91.09 - Other allergy status, other than to drugs and biological substances Pulmonology Referral J45.42 - Moderate persistent asthma with status asthmaticus Medications: New amoxicillin-pot clavulanate 875-125 mg 1 tab PO BID 14 tabs 0RF 7 days
--- OUTSIDE RECORDS SUMMARY | 2024-11-09 12:45 | XMS_ITS | Encounter Summary ---
Author Organization [facility] Address [address] [place] [id number] Phone Care Team Providers Care Auto Polisher Name Role Phone Paige Mccoy MD Primary Care Provider [phone] Encounter Details Date Type Department Care Team (Late st Contact Info) Description 09/21/2013 Documentation EM Family Medicine [address] [place] [address] Family Medicine, Physician [address] [place], [place] [address] Social History Tobacco Use Types Packs/Day Years Used Date Smoking Tobacco: Never Assessed Sex and Gender Information Value Date Recorded Sex Assigned at Not on file Legal Sex Male 5:00 PM EDT Gender Identity Not on file Sexual Orientation Not on file documented as of this encounter Plan of Treatment Not on file documented as of this encounter Visit Diagnoses Not on filedocumented in this encounter Care Teams Auto Polisher Relationship Specialty Start Date End Date Paige Mccoy MD [address] [place] [address] [place] [id number] PCP - General 12/20/16 10/24/22 documented as of this encounter
== END 2024-11-09 12:17 | disposition home or self-care (01) ==
LOC: HO.HMCH 11:31
DX: J45.42 Moderate persistent asthma with status asthmaticus (principal); H81.13 Benign paroxysmal vertigo, bilateral; Z91.018 Allergy to other foods; F12.90 Cannabis use, unspecified, uncomplicated; J32.9 Chronic sinusitis, unspecified

== ENCOUNTER → 2024-11-09 11:30 | Outpatient (BNVA) | payer BC, SELFPAY | DX: J45.42 Moderate persistent asthma with status asthmaticus (principal); H81.13 Benign paroxysmal vertigo, bilateral; F12.90 Cannabis use, unspecified, uncomplicated; J32.9 Chronic sinusitis, unspecified; Z91.018 Allergy to other foods | CPT/HCPCS: 96127 ==

== ENCOUNTER 2025-01-04 09:27 | Outpatient (AMB) | payer BC, SELFPAY ==
[2025-01-04 09:39] VITALS: BP 120/70; PULSE 68; O2SAT 99; BMI 23.9
--- NOTE | 2025-01-04 09:39 | MHC.OFFVIS ---
Vital Signs 01/04/25 09:39 Height 6 ft Weight 176 lb 5.917 oz BMI 23.9 BP 120/70 Blood Pressure Location Lt brachial Position Sitting Pulse 68 Pulse Source Pulse Oximeter Pulse Oximetry (%) 99 Oxygen Delivery Method Room Air Intake Visit Reasons: moderate asthma Intake Note: pt is here as a new patient for asthma, he states he has chronic asthma his whole life, his former MD is Dr. Taylor.please refill albuterol hfa Hotel Clerk Required: No Allergies peanut (PEANUT) Allergy (Severe, Verified 01/04/25 10:10) ANAPHYLAXIS dog dander (DOGS) Allergy (Unknown, Verified 01/04/25 10:10) SNEEZING egg (EGG) Allergy (Unknown, Verified 01/04/25 10:10) UNSURE feathers Allergy (Unknown, Verified 01/04/25 10:10) SNEEZING Medication List - Last Reconciled 01/04/25 by Saba Ness MD albuterol sulfate 90 mcg/actuation (ProAir HFA) 1 inh inhalation QID PRN albuterol sulfate 2.5 mg (3 mL) inhalation QID PRN albuterol sulfate 90 mcg/actuation (Ventolin HFA) 2 puffs inhalation Q4-6H PRN 30 days albuterol sulfate 2.5 mg (3 mL) inhalation Q4H PRN 30 days fluticasone propion-salmeterol 250-50 mcg/dose 1 inh inhalation BID fluticasone propion-salmeterol 250-50 mcg/dose (Wixela Inhub) 1 inh inhalation BID 30 days peak flow meter As directed Do you need a note to return to daycare/school/sports/work: No HPI HPI moderate asthma: Details: This 29 years old male, single, lives by himself, denies smoking cigarettes, is being seen for the 1st time. 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 It used to be intermittent mostly at the time of change in the weather, but gradually has become around the year. It is worse in spring and early summer months. He has had allergy testing about 20+ years ago by the allergy specialists, and had a wide list of all environmental agents that he was allergic to. He did not have immunotherapy. Has been treated by scout leaser Dr Isaac Taylor , who is now retired. He has been mostly on fluticasone-salmeterol combination ( initially Advair now changed to Wixela) 250-50 1 inhalation b.i.d., And has been using albuterol HFA when outdoors or at work 2 puffs Q 4-6 hours p.r.n., and albuterol solution in the nebulizer Q 6 hours p.r.n. when at home. He ends up using albuterol a few times every week. Complains of mild nasal congestion with postnasal discharge off and on. Complains of chest being congested quite frequently , and he has to use the rescue inhaler as noted above. He claims that with the use of Wixela 250-50 his symptoms are relatively under control. He works at a [employer] and has no . Problem with working He gets acute exacerbation maybe once or twice usually early spring and summer, but not during. the rest of the year In between the acute attacks he does feel. Fairly good and stable No old rugs in his apartment, he tries to keep the apartment clean and dust free, and he does not keep any pets. Denies smoking cigarettes or any other illicit agents. [facility]LY [facility] Medical History Acute otitis media Vertigo Pilonidal abscess Asthma Surgical History History of wisdom tooth extraction History of tonsillectomy Family History Father No problems noted. Mother No problems noted. Social History Household Members: None Housing: House Alcohol intake: current Alcohol intake frequency: holidays/special occasions only Patient Tobacco Use Status: Never used Tobacco e-Cigarette/Vaping Use: Never Used Second Hand Smoke Exposure: No Substance Use Type: Marijuana service: No Current occupational status: unemployed Cognitive needs: No Hearing needs: No Vision needs: No Review of Systems Const All systems reviewed & are unremarkable except as noted in HPI and below Eyes Reports no additional complaints ENT Reports nasal congestion (Off and on) Card Reports no additional complaints Resp Reports as per HPI GI Reports no additional complaints Reports no additional complaints Musc Reports no additional complaints Skin/Breast Reports system reviewed and no additional complaints, except as documented Neuro Reports no additional complaints Psych Reports no additional complaints Endo Reports no additional complaints David/Lymph Reports no additional complaints Aller/Immun Reports no additional complaints Physical Exam Vital Signs: Last Vital Signs Pulse 68 01/04/25 09:39 BP 120/70 01/04/25 09:39 Pulse Ox 99 01/04/25 09:39 Oxygen Delivery Method Room Air 01/04/25 09:39 BMI result Body Mass Index 23.9 Const General: healthy appearing, comfortable, no acute distress, alert and awake Orientation/consciousness: patient oriented x3 HEENT Head: Yes normal to inspection General nose exam: No nasal polyps present and No nasal discharge present Face and sinus: Yes sinuses nontender Mouth: oropharynx normal Throat: Yes posterior oropharynx normal Eyes General: appearance normal, both eyes and all related structures Neck Neck: Yes normal visual inspection, Yes no lymphadenopathy, Yes trachea midline and Yes no JVD Thyroid: Thyroid normal Chest Chest palpation & inspection: normal inspection of the chest, normal palpation of entire chest wall and no tenderness Resp Effort & Inspection: normal respiratory effort Auscultation: clear to auscultation bilaterally, no crackles, no rhonchi and no wheezes Cardio Palpation: normal PMI Rate: regular rate Rhythm: regular rhythm Heart sounds: no gallops and no murmurs Peripheral pulses: Peripheral pulses 2+ throughout GI Palpation (GI): Soft to palpation, nontender, No hepatosplenomegaly present and no masses Auscultation: normal bowel sounds Back/Spine/Pelvis Thoracic/Lumbar Spine: thoracic and lumbar spine normal to inspection Skin General skin exam: no rashes or lesions noted Neuro General: patient oriented x3 and no focal motor deficits Cranial nerves: Yes CN's II-XII intact bilaterally Extrem General: Yes normal to inspection, Yes no clubbing, cyanosis or edema and Yes no calf tenderness Psych Appearance: grossly normal and well kempt Speech and movement: Normal speech and movement present Results Reviewed Results Reviewed: Note from Dr.Paul Sheri Taylor reviewed Assessment & Plan Assessment & Plan (1) Asthma: Comment: Has chronic, lifelong, bronchial asthma, mild to moderate, persistent. Most likely secondary to multiple environmental allergies. Currently well controlled with his regimen. Code(s): J45.909 - Unspecified asthma, uncomplicated Category: Medical Qualifiers: Asthma severity: moderate Asthma persistence: persistent Asthma complication type: with status asthmaticus Qualified Code(s): J45.42 - Moderate persistent asthma with status asthmaticus Plan: Baseline spirometry before and after bronchodilators. Lap tests including CBC with diff, IgE level, RAST allergy testing, For treatment: Continue Wixela 250-51 inhalation b.i.d.. Albuterol HFA 2 puffs Q 4-6 hours p.r.n.. When outdoors Albuterol solution 2.5 mg in the nebulizer Q 4-6 hours p.r.n. when at home Check and record peak flow every week (2) Environmental allergies: Comment: He gives history of allergy to multiple environmental agents, Code(s): Z91.09 - Other allergy status, other than to drugs and biological substances Category: Medical Plan: RAST allergy testing is ordered So that we can identify the most offensive items and advise him to avoid exposure to those item. Orders: Orders Immunoglobulin E Today J45.42 - Moderate persistent asthma with status asthmaticus, Z91.09 - Other allergy status, other than to drugs and biological substances Rast Allergen Today J45.42 - Moderate persistent asthma with status asthmaticus, Z91.09 - Other allergy status, other than to drugs and biological substances Complete Blood Count Auto Diff Today J45.42 - Moderate persistent asthma with status asthmaticus, Z91.09 - Other allergy status, other than to drugs and biological substances AMB Spirometry Testing Today J45.42 - Moderate persistent asthma with status asthmaticus, Z91.09 - Other allergy status, other than to drugs and biological substances Medications: New albuterol sulfate 90 mcg/actuation (Ventolin HFA) 2 puffs inhalation Q4-6H PRN 8.5 grams 5RF shortness of breath or wheezing 30 days albuterol sulfate 2.5 mg (3 mL) inhalation Q4H PRN 180 mL 3RF shortness of breath or wheezing 30 days fluticasone propion-salmeterol 250-50 mcg/dose (Wixela Inhub) 1 inh inhalation BID 60 ea 4RF asthma 30 days peak flow meter As directed 1 ea 0RF Coding Level of Care Code New Pt Level 4 (31922) Diagnoses Moderate persistent asthma with status asthmaticus J45.42 Asthma severity: moderate Asthma persistence: persistent Asthma complication type: with status asthmaticus Environmental allergies Z91.09
--- OUTSIDE RECORDS SUMMARY | 2025-01-04 10:03 | XMS_ITS | Clinical Summary ---
Author Organization [facility] Address [address] [place] [address] Phone Care Team Providers Care Admittance Attendant Name Role Phone Unavailable Primary Care Provider Unavailabl e Immunizations Immunization Administration Dates Next Due DTP 07/09/1995, 5,1994,05/11 DTaP 5 01/05/1999 H1N1 04/13/2009 HPV, Quadrivalent 12/15/2012,10/28/2011,09/04/19 12 Hep A, Adult 03/23/2015,03/21/2014 Hep B, ped/adol 1994,1994,1994 Hib (PRP-T) 07/09/1995, 5,1994,05/11 IPV 04/10/1998, 5,1994,05/11 Influenza Split 02/06/2012,12/28/2009 Influenza, injectable, quadr ivalent, preservative free 03/23/2015,03/21/2014,04/28/2013 Influenza, injectable, trivalent 04/13/2009,01/10,04/15/2006 MMR 03/14/1998,06/11/1995 Meningococcal Conj (Menactra) MCV4P 03/23/2015,1 06/16/2005 Td (adult) (MBL), 2 Lf tetan us toxoid, PF, adsorbed 11/06/2012 Tdap 04/15/2006 Varicella 01/21/2008,01/05/1999 Family History Relation Name Status Comments Mother Alive Mother: Alive a nd well Other Family history of Diabetes mellitus, Family history of ADD/ADHD, Family history of Asthma Sister Alive Sister: Alive a nd well Social History Tobacco Use Types Packs/Day Years Used Date Smoking Tobacco: Never Comments:Never smoker Sex and Gender Information Value Date Recorded Sex Assigned at Not on file Legal Sex Male 5:00 PM EDT Gender Identity Not on file Sexual Orientation Not on file Last Filed Vital Signs Vital Sign Reading Time Taken Comments Blood Pressure 130/80 03/23/2015 12:00 AM EST Pulse 97 03/23/2015 12:00 AM EST Temperature 36.1 C (97 F) 10/26/2014 12:00 AM EDT Respiratory Rate - - Oxygen Saturation 98% 03/27/2014 12:00 AM EST Inhaled Oxygen Concentration - - Weight 81.6 kg (180 lb) 03/23/2015 12:00 AM EST Height 178.8 cm (5' 10.4 ) 03/23/2015 12:[address] Body Mass Index 25.53 03/23/2015 12:00 AM EST Plan of Treatment Health Maintenance Due Date Last Done Comments DTaP,Tdap,and Td Vaccines (8 - Td or Tdap) 11/06/2022 11/06/2012, 04/15/2006, 01/05/1999, Additional history exists COVID-19 Vaccine ( season) 2024 Influenza Vaccines (#1) 2024 03/23/20 15, 03/21/2014, 04/28/2013, Additional history exists Hepatitis B Vaccines Completed 1994, 1994, 1994 HIB Vaccines Completed 07/09/1995, 08/12, 1994, Additional history exists MMR Vaccines Completed 03/14/1998, 06/11/1995 IPV Vaccines Completed 04/10/1998, 11/11, 1994, Additional history exists Varicella Vaccines Completed 01/21/2008, 01/05/1999 HPV Vaccines Completed 12/15/2012, 10/10, 09/04/2011 Hepatitis A Vaccines Aged Out 03/23/2015, 03/21/20 14 No longer eligible based on patient's age to complete this topic Meningococcal Vaccine Aged Out 03/23/2015, 006 No longer eligible based on patient's age to complete this topic Men B Vaccine Aged Out No longer elig ible based on patient's age to complete this topic Pneumococcal Vaccine Aged Out No long er eligible based on patient's age to complete this topic
--- OUTSIDE RECORDS SUMMARY | 2025-01-04 10:03 | XMS_ITS | Encounter Summary ---
Author Organization [facility] Address [address] [place] [address] Phone Care Team Providers Care Heel Compressor Name Role Phone Paige Mccoy MD Primary Care Provider [phone] Encounter Details Date Type Department Care Team (Late st Contact Info) Description 08/25/2015 Documentation EM Family Medicine [address] [place] [address] Family Medicine, Physician [address] [place], [place] [id number] Social History Tobacco Use Types Packs/Day Years [...] on filedocumented in this encounter Care Teams Heel Compressor Relationship Specialty Start Date End Date Paige Mccoy MD [address] [place] [address] AMBER [place]alvo [address] PCP - General 12/20/16 10/24/22 documented as of this encounter
--- OUTSIDE RECORDS SUMMARY | 2025-01-04 10:03 | XMS_ITS | Encounter Summary ---
Author Organization [facility] Address [address] [place] [address] Phone Care Team Providers Care Transmission Assembler Name Role Phone Paige Mccoy MD Primary Care Provider [phone] Encounter Details Date Type Department Care Team (Late st Contact Info) Description 03/23/2015 Documentation EM Family Medicine [address] [place] [address] Family Medicine, Physician [address] [place], [place] [address] Social History Tobacco Use Types Packs/Day Years [...] on filedocumented in this encounter Care Teams Transmission Assembler Relationship Specialty Start Date End Date Paige Mccoy MD [address] [place] [address] AM[place] [address] PCP - General 12/20/16 10/24/22 documented as of this encounter
--- OUTSIDE RECORDS SUMMARY | 2025-01-04 10:03 | XMS_ITS | Encounter Summary ---
Author Organization [facility] Address [address] [place] [address] Phone Care Team Providers Care Geoduck Diver Name Role Phone Paige Mccoy MD Primary Care Provider [phone] Encounter Details Date Type Department Care Team (Late st Contact Info) Description 09/21/2013 Documentation EM Family Medicine [address] [place] [address] Family Medicine, Physician [address] [place], [place] [address] Social History Tobacco Use Types Packs/Day Years [...] on filedocumented in this encounter Care Teams Geoduck Diver Relationship Specialty Start Date End Date Paige Mccoy MD [address] [place] [address] AM[place] [address] PCP - General 12/20/16 10/24/22 documented as of this encounter
--- OUTSIDE RECORDS SUMMARY | 2025-01-04 10:03 | XMS_ITS | Encounter Summary ---
Author Organization [facility] Address [address] [place] [address] Phone Care Team Providers Care Executive Producer Promos Name Role Phone Paige Mccoy MD Primary Care Provider [phone] Encounter Details Date Type Department Care Team (Late st Contact Info) Description 10/02/2009 Documentation EM Family Medicine [address] [place] [address] Family Medicine, Physician [address] [place], [place] [address] Social History Tobacco Use Types Packs/Day Years [...] on filedocumented in this encounter Care Teams Executive Producer Promos Relationship Specialty Start Date End Date Paige Mccoy MD [address] [place] [address] AMBER [place] [address] PCP - General 12/20/16 10/24/22 documented as of this encounter
--- OUTSIDE RECORDS SUMMARY | 2025-01-04 10:03 | XMS_ITS | Encounter Summary ---
Author Organization [facility] Address [address] [place] [address] Phone Care Team Providers Care Battery Charger Conveyor Line Name Role Phone Paige Mccoy MD Primary Care Provider Encounter Details Date Type Department Care Team (Late st Contact Info) Description 10/27/2014 Documentation EM Family Medicine [address] [place] [address] Family Medicine, Physician [address] [place] [address] Social History Tobacco Use Types Packs/Day Years [...] on filedocumented in this encounter Care Teams Battery Charger Conveyor Line Relationship Specialty Start Date End Date Paige Mccoy MD [address] [place] [address] AM[place] [address] PCP - General 12/20/16 10/24/22 documented as of this encounter
--- OUTSIDE RECORDS SUMMARY | 2025-01-04 10:03 | XMS_ITS | Encounter Summary ---
Author Organization [facility] Address [address] [place] [address] Phone Care Team Providers Care Treasurer Savings Bank Name Role Phone Paige Mccoy MD Primary Care Provider [phone] Encounter Details Date Type Department Care Team (Late st Contact Info) Description 12/26/2016 Conversion Encounter [facility] [address] [place] [address] Social History Tobacco Use Types Packs/Day Years [...] on filedocumented in this encounter Care Teams Treasurer Savings Bank Relationship Specialty Start Date End Date Paige Mccoy MD [address] [place] [address] PCP - General 12/20/16 10/24/22 documented as of this encounter
--- OUTSIDE RECORDS SUMMARY | 2025-01-04 10:03 | XMS_ITS | Encounter Summary ---
Author Organization [facility] Address [address] [place] [address] Phone Care Team Providers Care Electronics Inspector Name Role Phone Piage Mccoy MD Primary Care Provider Encounter Details Date Type Department Care Team (Late st Contact Info) Description 11/23/2013 Documentation EM Family Medicine [address] [place] [address] Family Medicine, Physician [address] [place], [place] [address] Social History Tobacco Use Types Packs/Day Years [...] on filedocumented in this encounter Care Teams Electronics Inspector Relationship Specialty Start Date End Date Paige Mccoy MD [address] [place] [address] AM[place] [address] PCP - General 12/20/16 10/24/22 documented as of this encounter
--- OUTSIDE RECORDS SUMMARY | 2025-01-04 10:03 | XMS_ITS | Encounter Summary ---
Author Organization [facility] Address [address] [place] [address] Phone Care Team Providers Care Dandy Operator Name Role Phone Paige Mccoy MD Primary Care Provider [phone] Encounter Details Date Type Department Care Team (Late st Contact Info) Description 05/27/2013 Documentation EM Family Medicine [address] [place] [address] Family Medicine, Physician [address] [place] [address] Social History Tobacco Use Types Packs/Day Years [...] on filedocumented in this encounter Care Teams Dandy Operator Relationship Specialty Start Date End Date Paige Mccoy MD [address] [place] [address] AM[place] [address] PCP - General 12/20/16 10/24/22 documented as of this encounter
--- OUTSIDE RECORDS SUMMARY | 2025-01-04 10:03 | XMS_ITS | Encounter Summary ---
Author Organization [facility] Address [address] [place] [address] Phone Care Team Providers Care Sports Photographer Name Role Phone Paige Mccoy MD Primary Care Provider [phone] Encounter Details Date Type Department Care Team (Late st Contact Info) Description 11/30/2012 Documentation EM Family Medicine [address] [place] [address] Family Medicine, Physician [address] [place] [address] Social History Tobacco Use Types Packs/Day Years [...] on filedocumented in this encounter Care Teams Sports Photographer Relationship Specialty Start Date End Date Paige Mccoy MD [address] [place] [address] AMBER [place]al[place] [address] PCP - General 12/20/16 10/24/22 documented as of this encounter
--- OUTSIDE RECORDS SUMMARY | 2025-01-04 10:03 | XMS_ITS | Encounter Summary ---
Author Organization [facility] Address [address] [place] [address] Phone Care Team Providers Care Trimming Assembler Name Role Phone Paige Mccoy MD Primary Care Provider [phone] Encounter Details Date Type Department Care Team (Late st Contact Info) Description 03/22/2013 Documentation EM Family Medicine [address] [place] [address] Family Medicine, Physician [address] [place], [place] [address] Social History Tobacco Use Types Packs/Day Years [...] on filedocumented in this encounter Care Teams Trimming Assembler Relationship Specialty Start Date End Date Paige Mccoy MD [address] [place] [address] AMBER [place]al[place] [address] PCP - General 12/20/16 10/24/22 documented as of this encounter
--- OUTSIDE RECORDS SUMMARY | 2025-01-04 10:03 | XMS_ITS | Encounter Summary ---
Author Organization [facility] Address [address] [place] [address] Phone Care Team Providers Care Practical Nurse Clinical Coordinator Name Role Phone Paige Mccoy MD Primary Care Provider [phone] Encounter Details Date Type Department Care Team (Late st Contact Info) Description 11/21/2015 Documentation EM Family Medicine [address] [place] [address] Family Medicine, Physician [address] [place], [place] [address] Social History Tobacco Use Types Packs/Day Years [...] on filedocumented in this encounter Care Teams Practical Nurse Clinical Coordinator Relationship Specialty Start Date End Date Paige Mccoy MD [address] [place] [address] AMBER [place]al[place] [address] PCP - General 12/20/16 10/24/22 documented as of this encounter
--- OUTSIDE RECORDS SUMMARY | 2025-01-04 10:03 | XMS_ITS | Encounter Summary ---
Author Organization [facility] Address [address] [place] [address] Phone Care Team Providers Care Jde Developer Name Role Phone Paige Mccoy MD Primary Care Provider [phone] Encounter Details Date Type Department Care Team (Late st Contact Info) Description 03/12/2010 Documentation EM Family Medicine [address] [place] [address] Family Medicine, Physician [address] [place], [place] [address] Social History Tobacco Use Types Packs/Day Years [...] on filedocumented in this encounter Care Teams Jde Developer Relationship Specialty Start Date End Date Paige Mccoy MD [address] [place] [address] AMBER [place]al[place] [address] PCP - General 12/20/16 10/24/22 documented as of this encounter
--- OUTSIDE RECORDS SUMMARY | 2025-01-04 10:03 | XMS_ITS | Encounter Summary ---
Author Organization [facility] Address [address] [place] [address] Phone Care Team Providers Care Leasing Coordinator Name Role Phone Paige Mccoy MD Primary Care Provider [phone] Encounter Details Date Type Department Care Team (Late st Contact Info) Description 03/23/2014 Documentation EM Family Medicine [address] [place] [address] Family Medicine, Physician [address] [place], [place] [address] Social History Tobacco Use Types Packs/Day Years [...] on filedocumented in this encounter Care Teams Leasing Coordinator Relationship Specialty Start Date End Date Paige Mccoy MD [address] [place] [address] AM[place] [address] PCP - General 12/20/16 10/24/22 documented as of this encounter
--- OUTSIDE RECORDS SUMMARY | 2025-01-04 10:03 | XMS_ITS | Encounter Summary ---
Author Organization [facility] Address [address] [place] [address] Phone Care Team Providers Care Scaler Name Role Phone Paige Mccoy MD Primary Care Provider Encounter Details Date Type Department Care Team (Late st Contact Info) Description 04/13/2015 Documentation EM Family Medicine [address] [place] [address] Family Medicine, Physician [address] [place] [address] Social History Tobacco Use Types Packs/Day Years [...] on filedocumented in this encounter Care Teams Scaler Relationship Specialty Start Date End Date Paige Mccoy MD [address] [place] [address] AMBER [place]al[place] [address] PCP - General 12/20/16 10/24/22 documented as of this encounter
--- OUTSIDE RECORDS SUMMARY | 2025-01-04 10:03 | XMS_ITS | Encounter Summary ---
Author Organization [facility] Address [address] [place] [address] Phone Care Team Providers Care Vice Admiral Name Role Phone Paige Mccoy MD Primary Care Provider [phone] Encounter Details Date Type Department Care Team (Late st Contact Info) Description 02/01/2011 Documentation EM Family Medicine [address] [place] [address] Family Medicine, Physician [address] [place], [place] 684391 Social History Tobacco Use Types Packs/Day Years [...] on filedocumented in this encounter Care Teams Vice Admiral Relationship Specialty Start Date End Date Paige Mccoy MD [address] [place] [address] AMBER [place]alvo [address] PCP - General 12/20/16 10/24/22 documented as of this encounter
== END 2025-01-04 10:06 | disposition home or self-care (01) ==
LOC: HO.HPS 09:28
PROVIDERS: Visit Provider Internal Medicine
DX: J45.42 Moderate persistent asthma with status asthmaticus (principal); Z91.09 Other allergy status, other than to drugs and biological substances
CPT/HCPCS: 99204

== ENCOUNTER 2025-01-04 09:27 | Outpatient (REF) | payer BC, SELFPAY ==
[2025-01-04 10:27] LABS: MANUAL DIFF FLAG NO
[2025-01-04 11:01] LABS: Hematocrit 42.1 % (42.0-52.0); Hemoglobin 14.7 g/dl (14.0-18.0); Imm Gran Abs Auto 0.02 X10*3/uL (0.00-0.03); Imm Gran Pct Auto 0.3 % (0.0-0.4); Lymphocytes Absolute Auto 2.4 X10*3/uL (1.2-4.9); Mean Corpuscular HGB Conc 34.9 g/dl (31.0-36.0); Mean Corpuscular Hemoglobin 30.9 pg (27.0-33.0); Mean Corpuscular Volume 88.4 fL (80.0-98.0); NRBC Abs Auto 0.000 X10*3/uL (0.0-0.012); NRBC Pct Auto 0.0 /100WBC (0.0-0.2); Platelet Count 168 X10*3/uL (160-400); Red Blood Count 4.76 X10*6/uL (4.60-5.80); White Blood Count 7.1 X10*3/uL (4.8-10.8)
[2025-01-11 14:48] LABS: Class Mouse Urine Protein 0; I006-IgE Cockroach, German 0.16
[2025-01-11 14:49] LABS: Class Cat Dander 0/1; Class Cockroach 0/1; Class Dermatophagoides farinae 2; D002 - IgE D farinae 0.83; E001 - IgE Cat Dander 0.13
[2025-01-11 14:50] LABS: Class Alternaria alternata 4; Class Aspergillus fumigatus 3; Class Cladosporium herbarum 3; Class Dog Dander 3; Class Timothy Grass 3; E005 - IgE Dog Dander 5.02; G006 - IgE Timothy Grass 3.64; M002 - IgE Cladosporium herbar 3.98; M003 - IgE Aspergillus fumigat 5.31; M006 - IgE Alternaria alternat 27.20; T006 - IgE Cedar, Mountain 1.22
[2025-01-11 14:51] LABS: Class Cottonwood 3; Class Mountain Cedar 2; Class Oak 3; Class Sycamore 3; Class Walnut Tree 3; Class White Ash 3; T007 - IgE Oak, White 10.10; T010 - IgE Walnut 7.17; T011 - IgE Maple Leaf Sycamore 4.46; T014 - IgE Cottonwood 3.55; T015 - IgE Ash, White 13.10
[2025-01-11 14:52] LABS: Class Bermuda Grass 2; Class Derm. pterony 2; Class Mugwort 2; Class White Mulberry 2; T070 - IgE White Mulberry 2.37; W006 - IgE Mugwort 2.32
[2025-01-11 14:53] LABS: Class Common Ragweed 3; Class Rough Pigweed 3; W001 - IgE Ragweed, Short 10.40; W014 IgE Pigweed, Common 3.53
[2025-01-11 14:54] LABS: Class Birch 3; Class Elm 2; T008 IgE Elm, American 2.93
[2025-01-11 14:55] LABS: Class Maple Box Elder 3; Class Penicillium crysogenum 2; Class Sheep Sorrel 3; T001 IgE Maple/Box Elder 6.95; W018 IgE Sheep Sorrel 4.48
== END 2025-01-04 09:28 | disposition home or self-care (01) ==
LOC: HO.LAB 09:27
PROVIDERS: Visit Provider Internal Medicine
DX: J45.42 Moderate persistent asthma with status asthmaticus (principal); Z79.51 Long term (current) use of inhaled steroids; Z91.09 Other allergy status, other than to drugs and biological substances
CPT/HCPCS: 36415; 82785; 85025; 86003

== ENCOUNTER 2025-01-12 09:16 | Outpatient (AMB) | payer BC, SELFPAY ==
--- OUTSIDE RECORDS SUMMARY | 2025-01-12 09:59 | XMS_ITS | Encounter Summary ---
Author Organization [facility] Address [address] [place] [address] Phone Care Team Providers Care Custom Marine Canvas Fabricator Name Role Phone Paige Mccoy MD Primary Care Provider [phone] Encounter Details Date Type Department Care Team (Late st Contact Info) Description 03/12/2010 Documentation EM Family Medicine [address] [place] [address] Family Medicine, Physician [address] [place], [place] 716101 Social History Tobacco Use Types Packs/Day Years [...] on filedocumented in this encounter Care Teams Custom Marine Canvas Fabricator Relationship Specialty Start Date End Date Paige Mccoy MD [address] [place] [address] AMBER [place] [address] PCP - General 12/20/16 10/24/22 documented as of this encounter
--- OUTSIDE RECORDS SUMMARY | 2025-01-12 09:59 | XMS_ITS | Encounter Summary ---
Author Organization [facility] Address [address] [place] [address] Phone Care Team Providers Care Applique Sewer Name Role Phone Paige Mccoy MD Primary Care Provider [phone] Encounter Details Date Type Department Care Team (Late st Contact Info) Description 09/21/2013 Documentation EM Family Medicine [address] [place] [address] Family Medicine, Physician [address] [place], [place] 643271 Social History Tobacco Use Types Packs/Day Years [...] on filedocumented in this encounter Care Teams Applique Sewer Relationship Specialty Start Date End Date Paige Mccoy MD [address] [place] [address] AMBER [place] [address] PCP - General 12/20/16 10/24/22 documented as of this encounter
--- OUTSIDE RECORDS SUMMARY | 2025-01-12 09:59 | XMS_ITS | Encounter Summary ---
Author Organization [facility] Address [address] [place] [address] Phone Care Team Providers Care Solar Hot Water Installer Name Role Phone Paige Mccoy MD Primary Care Provider [phone] Encounter Details Date Type Department Care Team (Late st Contact Info) Description 03/22/2013 Documentation EM Family Medicine [address] [place] [address] Family Medicine, Physician [address] [place], [place] 504811 Social History Tobacco Use Types Packs/Day Years [...] on filedocumented in this encounter Care Teams Solar Hot Water Installer Relationship Specialty Start Date End Date Paige Mccoy MD [address] [place] [address] AMBER [place] [address] PCP - General 12/20/16 10/24/22 documented as of this encounter
--- OUTSIDE RECORDS SUMMARY | 2025-01-12 09:59 | XMS_ITS | Encounter Summary ---
Author Organization [facility] Address [address] [place] [address] Phone Care Team Providers Care Photovoltaic Power Systems Engineer Name Role Phone Paige Mccoy MD Primary Care Provider [phone] Encounter Details Date Type Department Care Team (Late st Contact Info) Description 08/25/2015 Documentation EM Family Medicine [address] [place] [address] Family Medicine, Physician [address] [place], [place] 458251 Social History Tobacco Use Types Packs/Day Years [...] on filedocumented in this encounter Care Teams Photovoltaic Power Systems Engineer Relationship Specialty Start Date End Date Paige Mccoy MD [address] [place] [address] AMBER [place] [address] PCP - General 12/20/16 10/24/22 documented as of this encounter
--- OUTSIDE RECORDS SUMMARY | 2025-01-12 09:59 | XMS_ITS | Encounter Summary ---
Author Organization [facility] Address [address] [place] [address] Phone Care Team Providers Care Snack Stewardess Name Role Phone Paige Mccoy MD Primary Care Provider [phone] Encounter Details Date Type Department Care Team (Late st Contact Info) Description 10/02/2009 Documentation EM Family Medicine [address] [place] [address] Family Medicine, Physician [address] [place], [place] 155891 Social History Tobacco Use Types Packs/Day Years [...] on filedocumented in this encounter Care Teams Snack Stewardess Relationship Specialty Start Date End Date Paige Mccoy MD [address] [place] [address] AMBER [place] [address] PCP - General 12/20/16 10/24/22 documented as of this encounter
--- OUTSIDE RECORDS SUMMARY | 2025-01-12 09:59 | XMS_ITS | Encounter Summary ---
Author Organization [facility] Address [address] [place] [address] Phone Care Team Providers Care Supervisor Firearms Name Role Phone Paige Mccoy MD Primary Care Provider Encounter Details Date Type Department Care Team (Late st Contact Info) Description 03/23/2015 Documentation EM Family Medicine [address] [place] [address] Family Medicine, Physician [address] [place], [place] 777111 Social History Tobacco Use Types Packs/Day Years [...] on filedocumented in this encounter Care Teams Supervisor Firearms Relationship Specialty Start Date End Date Paige Mccoy MD [address] [place] [address] AMBER [place] [address] PCP - General 12/20/16 10/24/22 documented as of this encounter
--- OUTSIDE RECORDS SUMMARY | 2025-01-12 09:59 | XMS_ITS | Encounter Summary ---
Author Organization [facility] Address [address] [place] [address] Phone Care Team Providers Care Housekeeper/Laundry Assistant Name Role Phone Paige Mccoy MD Primary Care Provider [phone] Encounter Details Date Type Department Care Team (Late st Contact Info) Description 12/26/2016 Conversion Encounter [facility] [place] [address] [place] [address] Social History Tobacco Use Types Packs/Day Years [...] on filedocumented in this encounter Care Teams Housekeeper/Laundry Assistant Relationship Specialty Start Date End Date Paige Mccoy MD [address] [place] [address] PCP - General 12/20/16 10/24/22 documented as of this encounter
--- OUTSIDE RECORDS SUMMARY | 2025-01-12 09:59 | XMS_ITS | Encounter Summary ---
Author Organization [facility] Address [address] [place] [address] Phone Care Team Providers Care Interactive Media Marketing Specialist Name Role Phone Paige Mccoy MD Primary Care Provider Encounter Details Date Type Department Care Team (Late st Contact Info) Description 10/27/2014 Documentation EM Family Medicine [address] [place] [address] Family Medicine, Physician [address] [place] [address] Social History Tobacco Use Types Packs/Day Years [...] on filedocumented in this encounter Care Teams Interactive Media Marketing Specialist Relationship Specialty Start Date End Date Paige Mccoy MD [address] [place] [address] AMBER [place]al[place] [address] PCP - General 12/20/16 10/24/22 documented as of this encounter
--- OUTSIDE RECORDS SUMMARY | 2025-01-12 09:59 | XMS_ITS | Clinical Summary ---
Author Organization [facility] Address [address] [place] [address] Phone Care Team Providers Care Drapery Cutter Machine Name Role Phone Unavailable Primary Care Provider [...] 11/06/2022 11/06/2012, 04/15/2006, 01/05/1999, Additional history exists Influenza Vaccines (#1) 2024 03/23/20 15, 03/21/2014, 04/28/2013, Additional history exists COVID-19 Vaccine ( season) 2025 Hepatitis B Vaccines Completed 1994, 1994, 1994 [...]
--- OUTSIDE RECORDS SUMMARY | 2025-01-12 09:59 | XMS_ITS | Encounter Summary ---
Author Organization [facility] Address [address] [place] [address] Phone Care Team Providers Care Microeconomics Professor Name Role Phone Paige Mccoy MD Primary Care Provider [phone] Encounter Details Date Type Department Care Team (Late st Contact Info) Description 04/13/2015 Documentation EM Family Medicine [address] [place] [address] Family Medicine, Physician [address] [place] [address] Social History Tobacco Use Types Packs/Day Years [...] on filedocumented in this encounter Care Teams Microeconomics Professor Relationship Specialty Start Date End Date Paige Mccoy MD [address] [place] [address] AMBER [place] [address] PCP - General 12/20/16 10/24/22 documented as of this encounter
--- OUTSIDE RECORDS SUMMARY | 2025-01-12 09:59 | XMS_ITS | Encounter Summary ---
Author Organization [facility] Address [address] [place] [address] Phone Care Team Providers Care Salvage Worker Name Role Phone Paige Mccoy MD Primary Care Provider [phone] Encounter Details Date Type Department Care Team (Late st Contact Info) Description 03/23/2014 Documentation EM Family Medicine [address] [place] [address] Family Medicine, Physician [address] [place], [place] [address]111 Social History Tobacco Use Types Packs/Day Years [...] on filedocumented in this encounter Care Teams Salvage Worker Relationship Specialty Start Date End Date Paige Mccoy MD [address] [place] [address] AMBER [place] [address] PCP - General 12/20/16 10/24/22 documented as of this encounter
--- OUTSIDE RECORDS SUMMARY | 2025-01-12 09:59 | XMS_ITS | Encounter Summary ---
Author Organization [facility] Address [address] [place] [address] Phone Care Team Providers Care Change Of Address Clerk Name Role Phone Paige Mccoy MD Primary Care Provider [phone] Encounter Details Date Type Department Care Team (Late st Contact Info) Description 11/30/2012 Documentation EM Family Medicine [address] [place] [address] Family Medicine, Physician [address] [place] [address] Social History Tobacco Use Types Packs/Day Years [...] on filedocumented in this encounter Care Teams Change Of Address Clerk Relationship Specialty Start Date End Date Paige Mccoy MD [address] [place] [address] AMBER [place]al[place] [address] PCP - General 12/20/16 10/24/22 documented as of this encounter
--- OUTSIDE RECORDS SUMMARY | 2025-01-12 09:59 | XMS_ITS | Encounter Summary ---
Author Organization [facility] Address [address] [place] [address] Phone Care Team Providers Care Polymerization Helper Name Role Phone Paige Mccoy MD Primary Care Provider [phone] Encounter Details Date Type Department Care Team (Late st Contact Info) Description 05/27/2013 Documentation EM Family Medicine [address] [place] [address] Family Medicine, Physician [address] [place] [address] Social History Tobacco Use Types Packs/Day Years [...] on filedocumented in this encounter Care Teams Polymerization Helper Relationship Specialty Start Date End Date Paige Mccoy MD [address] [place] [address] AMBER [place] [address] PCP - General 12/20/16 10/24/22 documented as of this encounter
--- OUTSIDE RECORDS SUMMARY | 2025-01-12 09:59 | XMS_ITS | Encounter Summary ---
Author Organization [facility] Address [address] [place] [address] Phone Care Team Providers Care Aircraft Assembler Name Role Phone Paige Mccoy MD Primary Care Provider [phone] Encounter Details Date Type Department Care Team (Late st Contact Info) Description 11/21/2015 Documentation EM Family Medicine [address] [place] [address] Family Medicine, Physician [address] [place], [place] [address] Social History Tobacco Use Types Packs/Day Years [...] on filedocumented in this encounter Care Teams Aircraft Assembler Relationship Specialty Start Date End Date Paige Mccoy MD [address] [place] [address] AMBER [place] [address] PCP - General 12/20/16 10/24/22 documented as of this encounter
--- OUTSIDE RECORDS SUMMARY | 2025-01-12 09:59 | XMS_ITS | Encounter Summary ---
Author Organization [facility] Address [address] [place] [address] Phone Care Team Providers Care Wall Covering Installer Name Role Phone Paige Mccoy MD Primary Care Provider [phone] Encounter Details Date Type Department Care Team (Late st Contact Info) Description 02/01/2011 Documentation EM Family Medicine [address] [place] [address] Family Medicine, Physician [address] [place], [place] [address] Social History Tobacco Use Types Packs/Day Years [...] on filedocumented in this encounter Care Teams Wall Covering Installer Relationship Specialty Start Date End Date Paige Mccoy MD [address] [place] [address] AMBER [place]al[place] [address] PCP - General 12/20/16 10/24/22 documented as of this encounter
--- OUTSIDE RECORDS SUMMARY | 2025-01-12 09:59 | XMS_ITS | Encounter Summary ---
Author Organization [facility] Address [address] [place] [address] Phone Care Team Providers Care Cyber Security Architect Name Role Phone Paige Mccoy MD Primary Care Provider Encounter Details Date Type Department Care Team (Late st Contact Info) Description 11/23/2013 Documentation EM Family Medicine [address] [place] [address] Family Medicine, Physician [address] [place], [place] 2467[address] Social History Tobacco Use Types Packs/Day Years [...] on filedocumented in this encounter Care Teams Cyber Security Architect Relationship Specialty Start Date End Date Paige Mccoy MD [address] [place] [address] AMBER [place]al[place] [address] PCP - General 12/20/16 10/24/22 documented as of this encounter
[2025-01-12 10:25] VITALS: PULSE 76; O2SAT 98
--- NOTE | 2025-01-12 10:25 | MHC.OFFVIS ---
Vital Signs 01/12/25 10:25 Weight 176 lb 5.917 oz Pulse 76 Pulse Source Pulse Oximeter Pulse Oximetry (%) 98 Oxygen Delivery Method Room Air Intake Visit Reasons: Spirometry Physician Recruiter Required: No Allergies peanut (PEANUT) Allergy (Severe, Verified 01/12/25 10:26) ANAPHYLAXIS dog dander (DOGS) Allergy (Unknown, Verified 01/12/25 10:26) SNEEZING egg (EGG) Allergy (Unknown, Verified 01/12/25 10:26) UNSURE feathers Allergy (Unknown, Verified 01/12/25 10:26) SNEEZING Medication List - Last Reconciled 01/12/25 by Cat Jain LPN albuterol sulfate 90 mcg/actuation (ProAir HFA) 1 inh inhalation QID PRN albuterol sulfate 2.5 mg (3 mL) inhalation QID PRN albuterol sulfate 90 mcg/actuation (Ventolin HFA) 2 puffs inhalation Q4-6H PRN 30 days albuterol sulfate 2.5 mg (3 mL) inhalation Q4H PRN 30 days fluticasone propion-salmeterol 250-50 mcg/dose 1 inh inhalation BID fluticasone propion-salmeterol 250-50 mcg/dose (Wixela Inhub) 1 inh inhalation BID 30 days peak flow meter As directed [facility] Medical History Acute otitis media Vertigo Pilonidal abscess Asthma Surgical History History of wisdom tooth extraction History of tonsillectomy Family History Father No problems noted. Mother No problems noted. Social History Household Members: None Housing: House Alcohol intake: current Alcohol intake frequency: holidays/special occasions only Patient Tobacco Use Status: Never used Tobacco e-Cigarette/Vaping Use: Never Used Second Hand Smoke Exposure: No Substance Use Type: Marijuana service: No Current occupational status: unemployed Cognitive needs: No Hearing needs: No Vision needs: No Physical Exam Vital Signs: Last Vital Signs Pulse 76 01/12/25 10:25 Pulse Ox 98 01/12/25 10:25 Oxygen Delivery Method Room Air 01/12/25 10:25 Office Procedures Nebulizer Treatment Nebulizer Treatment 02991-Pguaqiwff/MDI RX initial, or Nebulizer Subsequent Treatment Spirometry Testing Spirometry Comments: Pre and Post Spirometry done in the office. Dr. Ness has the results results scanned to his chart. 73927- Spirometry Office Meds albuterol sulfate 2.5 mg/3 mL (0.083 %) solution for nebulization Performing Provider: Saba Ness MD Performing Location: [facility] Administered by: Cat Jain LPN on 01/12/25 10:27 Dose Route Admin Location Dispensed Lot Number Expiration Date NDC Medical Transcription Supervisor 2.5 mg inhalation 3 mL [id number] 06/11/25 1077-2522-51 MYLAN Comments: used for bronchodilator in pre and post spirometry- patient tolerated well Assessment & Plan Assessment & Plan (1) Asthma: Comment: Patient here for spirometry before and after bronchodilators Code(s): J45.909 - Unspecified asthma, uncomplicated Category: Medical Qualifiers: Asthma complication type: with status asthmaticus Asthma persistence: persistent Asthma severity: moderate Qualified Code(s): J45.42 - Moderate persistent asthma with status asthmaticus Plan: as above Orders: Orders AMB Nebulizer Treatment Today J45.42 - Moderate persistent asthma with status asthmaticus AMB Spirometry Testing Today J45.42 - Moderate persistent asthma with status asthmaticus Coding Level of Care Code Established Pt Est Pt Level 1 (71963) Patient Type Established Diagnoses Moderate persistent asthma with status asthmaticus J45.42 Asthma complication type: with status asthmaticus Asthma persistence: persistent Asthma severity: moderate CPT Codes Nebulizer Treatment - Nebulizer Treatment, initial or subsequent: [id number]-[id number]/MDI RX initial, or Nebulizer Subsequent Treatment ([id number]) Spirometry - CPT: 41458- Spirometry ([id number]) Comment NURSE VISIT ONLY
== END 2025-01-12 09:38 | disposition home or self-care (01) ==
LOC: HO.HPS 09:17
PROVIDERS: Visit Provider Internal Medicine
DX: J45.42 Moderate persistent asthma with status asthmaticus (principal)
CPT/HCPCS: 94010; 99499

== ENCOUNTER → 2025-01-12 09:16 | Outpatient (BNVA) | payer BC, SELFPAY | PROVIDERS: Visit Provider Internal Medicine | DX: J45.42 Moderate persistent asthma with status asthmaticus (principal) | CPT/HCPCS: 94010 ==

== ENCOUNTER 2025-02-16 10:24 | Outpatient (AMB) | payer BC, SELFPAY ==
--- NOTE | 2025-02-16 10:45 | MHC.OFFVIS ---
Vital Signs 02/16/25 10:46 Height 6 ft Weight 170 lb 13.732 oz BMI 23.2 BP 118/72 Blood Pressure Location Lt brachial Position Sitting Pulse 67 Pulse Source Pulse Oximeter Pulse Oximetry (%) 97 Oxygen Delivery Method Room Air Intake Visit Reasons: Asthma Intake Note: pt is here for follow up of rast testing Credit Review Analyst Required: No Mutual Fund Accountant: Mutual Fund Accountant offered & declined Allergies peanut (PEANUT) Allergy (Severe, Verified 02/16/25 12:01) ANAPHYLAXIS dog dander (DOGS) Allergy (Unknown, Verified 02/16/25 12:01) SNEEZING egg (EGG) Allergy (Unknown, Verified 02/16/25 12:01) UNSURE feathers Allergy (Unknown, Verified 02/16/25 12:01) SNEEZING Medication List - Last Reconciled 02/16/25 by Saba Ness MD albuterol sulfate 90 mcg/actuation (Ventolin HFA) 2 puffs inhalation Q4-6H PRN 30 days albuterol sulfate 2.5 mg (3 mL) inhalation Q4H PRN 30 days fluticasone propion-salmeterol 250-50 mcg/dose (Wixela Inhub) 1 inh inhalation BID 30 days peak flow meter As directed Do you need a note to return to daycare/school/sports/work: No HPI HPI Asthma: Details: THIS 30 YEARS OLD GENTLEMAN IS HERE FOR FOLLOW-UP. HE IS VERY HAPPY AND STATES THAT ON HIS CURRENT REGIMEN IS BREATHING HAS BEEN WELL CONTROLLED AND GOOD. HE HAS HAD NO ACUTE. ATTACKS OF ASTHMA .COUGH IS ALSO MINIMAL HE DOES NOT NEED TO USE THE RESCUE INHALER EXCEPT FOR ONCE IN A WHILE [facility] Medical History (Updated 02/16/25 @ 12:09 by Saba Ness MD) Hyper-immunoglobulin E syndrome Acute otitis media Vertigo Pilonidal abscess Asthma Surgical History History of wisdom tooth extraction History of tonsillectomy Family History Father No problems noted. Mother No problems noted. Social History Household Members: None Housing: House Alcohol intake: current Alcohol intake frequency: holidays/special occasions only Patient Tobacco Use Status: Never used Tobacco e-Cigarette/Vaping Use: Never Used Second Hand Smoke Exposure: No Substance Use Type: Marijuana service: No Current occupational status: unemployed Cognitive needs: No Hearing needs: No Vision needs: No Review of Systems Const All systems reviewed & are unremarkable except as noted in HPI and below Eyes Reports no additional complaints ENT Reports nasal congestion (Off and on) Card Reports no additional complaints Resp Reports as per HPI GI Reports no additional complaints Reports no additional complaints Musc Reports no additional complaints Skin/Breast Reports system reviewed and no additional complaints, except as documented Neuro Reports no additional complaints Psych Reports no additional complaints Endo Reports no additional complaints David/Lymph Reports no additional complaints Aller/Immun Reports no additional complaints Physical Exam Vital Signs: Last Vital Signs Pulse 67 02/16/25 10:46 BP 118/72 02/16/25 10:46 Pulse Ox 97 02/16/25 10:46 Oxygen Delivery Method Room Air 02/16/25 10:46 BMI result Body Mass Index 23.2 Const General: healthy appearing, comfortable, no acute distress, alert and awake Orientation/consciousness: patient oriented x3 HEENT Head: Yes normal to inspection General nose exam: No nasal polyps present and No nasal discharge present Face and sinus: Yes sinuses nontender Mouth: oropharynx normal Throat: Yes posterior oropharynx normal Eyes General: appearance normal, both eyes and all related structures Neck Neck: Yes normal visual inspection, Yes no lymphadenopathy, Yes trachea midline and Yes no JVD Thyroid: Thyroid normal Chest Chest palpation & inspection: normal inspection of the chest, normal palpation of entire chest wall and no tenderness Resp Effort & Inspection: normal respiratory effort Auscultation: clear to auscultation bilaterally, no crackles, no rhonchi and no wheezes Cardio Palpation: normal PMI Rate: regular rate Rhythm: regular rhythm Heart sounds: no gallops and no murmurs Peripheral pulses: Peripheral pulses 2+ throughout GI Palpation (GI): Soft to palpation, nontender, No hepatosplenomegaly present and no masses Auscultation: normal bowel sounds Back/Spine/Pelvis Thoracic/Lumbar Spine: thoracic and lumbar spine normal to inspection Skin General skin exam: no rashes or lesions noted Neuro General: patient oriented x3 and no focal motor deficits Cranial nerves: Yes CN's II-XII intact bilaterally Extrem General: Yes normal to inspection, Yes no clubbing, cyanosis or edema and Yes no calf tenderness Psych Appearance: grossly normal and well kempt Speech and movement: Normal speech and movement present Results Reviewed Results Reviewed: RAST TEST, SHOWS THAT HE IS HIGHLY ALLERGIC TO DOG DANDER EOSINOPHIL COUNT IS NORMAL IGE LEVEL 1265 ( VERY HIGH) Assessment & Plan Assessment & Plan (1) Asthma: Comment: HE IS A CASE OF CHRONIC ALLERGIC BRONCHIAL ASTHMA. SYMPTOMS ARE WORSE IN SPRING SEASON AT PRESENT WELL CONTROLLED WITH USE OF FLUTICASONE-SALMETEROL 250-50 TWICE A DAY HE HAS NO NEED TO USE THE RESCUE INHALER EXCEPT MAYBE ONCE OR TWICE A MONTH. Code(s): J45.909 - Unspecified asthma, uncomplicated Category: Medical Qualifiers: Asthma severity: moderate Asthma persistence: persistent Asthma complication type: with status asthmaticus Qualified Code(s): J45.42 - Moderate persistent asthma with status asthmaticus Plan: CONTINUE FLUTICASONE-SALMETEROL 250-51 INHALATION B.I.D.. USE ALBUTEROL HFA 2 PUFFS Q 4-6 HOURS P.R.N. (2) Environmental allergies: Comment: He gives history of allergy to multiple environmental agents, RAST TESTING SHOWS THAT HE IS HIGHLY ALLERGIC TO DOG DANDER Code(s): Z91.09 - Other allergy status, other than to drugs and biological substances Category: Medical Plan: ADVISED TO STAY AWAY FROM DOG AND ANY OTHER PET ANIMALS . HE HAS OTHER ENVIRONMENTAL ALLERGIES ESPECIALLY IN SPRING AND EARLY SUMMER SEASON. WILL BE CLOSELY. 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 Code(s): D82.4 - Hyperimmunoglobulin E [IgE] syndrome Category: Medical Plan: HE DOES QUALIFY FOR HAVING BIOLOGIC TREATMENT. HOWEVER LONG HIS SYMPTOMS ARE CONTROLLED WITH THE USE OF MINIMAL MEDICATION, WE DO NOT HAVE TO START HIM ON BIOLOGIC TREATMENT. 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
[2025-02-16 10:46] VITALS: BP 118/72; PULSE 67; O2SAT 97; BMI 23.2
== END 2025-02-16 11:10 | disposition home or self-care (01) ==
LOC: HO.HPS 10:25
PROVIDERS: Visit Provider Internal Medicine
DX: J45.42 Moderate persistent asthma with status asthmaticus (principal); Z91.09 Other allergy status, other than to drugs and biological substances; D82.4 Hyperimmunoglobulin E [IgE] syndrome
CPT/HCPCS: 99213